=== PATIENT | female | born 1935 | race Caucasian/White ===

== ENCOUNTER → 2016-09-15 | Outpatient (CLI) | payer MEDICARE, OTHER ==
[~2016-09-15] MED LIST: ALPR-236 PO; ASCO500T9 PO; ASPI-917 PO; BISA10SU8 RECTALLY; BUPR-51 PO; CYAN500T2 PO; ESCI20TA22 PO; FERR324T4 PO; GABA-336 PO; HYDR-4246 PO; LISI10TA7 PO; MAGN400O4 PO; MEMA1CAP3 PO; QUET150T3 PO; SENN-152 PO; SOLI10TA5 PO; TRAZ-173 PO; VIT1CAPS47 PO
--- NOTE | 2016-09-15 14:16 | DI ---
EXAM: WRIST LEFT 3-4 VIEWS LOCATION OF DICTATION: [place] HISTORY: ITS.REASON: W19.XXXA FALL fell yesterday. Pain on thumb side of wrist. COMPARISON: Compared to March 16, 2016. FINDINGS: There are age-indeterminate fractures involving the distal left radius and ulnar styloid process. The fractures may reflect acute on chronic fractures at the fractures are slightly changed when compared to the old fractures in March 2016. There is no evidence for joint dislocation. There is mild osteoarthrosis of the radiocarpal joint and moderate osteoarthrosis at the first carpal metacarpal joint. Para-articular osteopenia is noted. Moderate soft tissue swelling about the wrist joint. Impression: 1. Fractures noted about the distal left radius and ulnar styloid process which are slightly changed when compared to the previous fracture dated March 2016 and may reflect acute on chronic fracture deformities. There is slight increase dorsally angulation of the distal radial fracture. There is soft tissue swelling about the wrist joint. 2. No evidence for joint dislocation or subluxation. 3. Moderate osteoarthrosis as described above. .
== END ==
LOC: IMA 13:23
PROVIDERS: ATTEND Family Medicine
DX: S52.592A Other fractures of lower end of left radius, initial encounter for closed fracture (principal); S52.615A Nondisplaced fracture of left ulna styloid process, initial encounter for closed fracture; W19.XXXA Unspecified fall, initial encounter; Y93.9 Activity, unspecified; Y92.009 Unspecified place in unspecified non-institutional (private) residence as the place of occurrence of the external cause; Y99.9 Unspecified external cause status; M19.032 Primary osteoarthritis, left wrist; M18.12 Unilateral primary osteoarthritis of first carpometacarpal joint, left hand; M79.89 Other specified soft tissue disorders; M25.532 Pain in left wrist

== ENCOUNTER 2016-09-26 10:12 | Emergency (ER) | payer MEDICARE, OTHER ==
[~2016-09-26] VITALS: Ht 162.6 cm; Wt 66.9 kg
[2016-09-26 10:15] VITALS: Ht 162.6 cm; Wt 66.9 kg
--- OUTSIDE RECORDS SUMMARY | 2016-09-26 10:17 | XMS REPORT | Referral Summary ---
Author Author [facility], Family Medicine Organization [facility] Address Unknown Phone Unavailable Care Team Providers Care Mobile Home Laborer Name Role Phone Yonathan Dalal Primary Care Physician [phone] Encounter VC Date(s): 04/17/16 - 04/17/16 [facility], [address] [place] [id number] Discharge Diagnosis: Back pain, chronic Discharge Diagnosis: Hypothyroidism (disorder) Discharge Diagnosis: Depression Discharge Diagnosis: H/O fracture of wrist Discharge Diagnosis: Burning tongue syndrome Discharge Diagnosis: Chronic kidney disease (CKD) stage G1/A1, glomerular filtration rate (GFR) equal to or greater than 90 mL/min/1.73 square meter and albuminuria creatinine ratio less than 30 mg/g Discharge Diagnosis: Dementia, vascular Discharge Disposition: 01-Home or Self Care Attending Physician: Vincent Dalal MD Admitting Physician: Vincent Dalal MD Vital Signs Most recent to 1 oldest [Reference Range]: Blood Pressure 150/80 mmHg [90-140/60-90 mmHg] *HI* (04/17/16 1:05 PM) Problem List Condition Effective Dates Status Health Status Informant Allergies(Confirmed) Active Anemia(Confirmed) Active Anxiety state Active (finding)(Confirmed) Cholelithiasis(Confi Active rmed) Back pain, Active chronic(Confirmed) Chronic kidney Active disease (CKD) stage G1/A1, glomerular filtration rate (GFR) equal to or greater than 90 mL/min/1.73 square meter and albuminuria creatinine ratio less than 30 mg/g(Confirmed) CKD (chronic kidney Active disease)(Confirmed) Dementia(Confirmed) Active Depression(Confirmed Active ) Burning tongue Active syndrome(Confirmed) Hypothyroidism Active (disorder)(Confirmed ) Insomnia Active (disorder)(Confirmed ) Iron deficiency Active anemia (disorder)(Confirmed ) Tongue Active lesion(Confirmed) Melanoma of Active eye(Confirmed) Migraine without Active aura (disorder)(Confirmed ) Mild cognitive Active impairment(Confirmed ) Osteoarthritis(Confi Active rmed) Osteoporosis Active (disorder)(Confirmed ) Dementia, Active vascular(Confirmed) Allergies, Adverse Reactions, Alerts Substance Reaction Severity Status codeine Active Medications ALPRAZolam 0.5 mg oral tablet See Instructions, as needed for anxiety, Change in dose. Take 1/2 tab po q am, 1 tab po q pm. N. Dillons, # 45 tabs, 0 Refill(s) Start Date: 04/17/16 Status: Ordered aspirin 81 mg oral tablet 81 mg 1 tabs, Oral, Daily, # 90 tabs, 0 Refill(s), other reason (Rx) Start Date: 11/01/15 Status: Ordered buPROPion 150 mg/24 hours (XL) oral tablet, extended release See Instructions, TAKE 3 TABLETS DAILY (EVERY24 HOURS), # 270 tabs, 1 Refill(s) , eRx: [facility], TAKE 3 TABLETS DAILY (EVERY24 HOURS) Start Date: 12/13/15 Status: Ordered docusate sodium 100 mg oral tablet 100 mg 1 tabs, Oral, BID, as needed for constipation, # 60 tabs, 0 Refill(s) Start Date: 01/17/15 Status: Ordered [facility]- Zeaxanthin/Lutein Eye [facility]- Zeaxanthin/Lutein Start Date: 12/08/14 Status: Ordered gabapentin 100 mg oral capsule See Instructions, TAKE 1 CAPSULE 3 TIMES A DAY, # 90 caps, 3 Refill(s), eRx: [facility], TAKE 1 CAPSULE 3 TIMES A DAY Start Date: 01/07/16 Status: Ordered Lexapro 20 mg oral tablet 1 tabs, Oral, Daily, # 90 tabs, 1 Refill(s), Pharmacy: [facility], 1 tabs Oral Daily Start Date: 04/04/14 Status: Ordered Namzaric 28 mg-10 mg oral capsule, extended release 1 caps, Oral, Daily, # 30 caps, 0 Refill(s), Pharmacy: [facility] Start Date: 10/30/15 Stop Date: 11/29/15 Status: Ordered oxybutynin 15 mg/24 hr oral tablet, extended release See Instructions, TAKE ONE TABLET BY MOUTH DAILY, # 30 unknown unit, eRx: [facility] #[id number], TAKE ONE TABLET BY MOUTH DAILY Start Date: 03/27/16 Status: Ordered SEROquel 100 mg oral tablet 100 mg 1 tabs, Oral, Daily, 0 Refill(s) Start Date: 11/01/15 Status: Ordered SWIZZLE; MOUTH RINSE SWIZZLE; MOUTH RINSE, PRN Mouth Sores, 0 Refill(s) Start Date: 11/27/14 Status: Ordered traZODone 100 mg oral tablet 100 mg 1 tabs, Oral, Bedtime (once a day), # 90 tabs, 0 Refill(s), Pharmacy: [facility] #[id number], 1 tabs Oral Bedtime (once a day) Start Date: 01/17/16 Status: Ordered Results No data available for this section Immunizations Vaccine Date Refusal Reason influenza virus vaccine, inactivated 02/02/15 influenza virus vaccine, live 03/08/13 influenza virus vaccine, live 03/29/07 pneumococcal 13-valent conjugate vaccine 02/02/15 pneumococcal 23-polyvalent vaccine 02/09/02 Procedures Procedure Date Related Diagnosis Body Site Colonoscopy1 01/12/15 Appendectomy Biopsy of lung2 Colonoscopy Femoral head replacement Knee replacement-left Knee replacement-rt Myringotomy Surgery-sinus Tonsillectomy 1Diverticulosis repeat in 10 years 2negative Social History Social History Type Response Smoking Status Former smoker Assessment and Plan Extracted from: Title: Ambulatory Patient Education Author: Vincent Dalal MD Date: Home Health Care Dementia Dementia is a general term for problems with brain function. A person with dementia has memory loss and a hard time with at least one other brain function such as thinking, speaking, or problem solving. Dementia can affect social functioning, how you do your job, your mood, or your personality. The changes may be hidden for a long time. The earliest forms of this disease are usually not detected by family or friends. Dementia can be: Irreversible. Potentially reversible. Partially reversible. Progressive. This means it can get worse over time. CAUSES Irreversible dementia causes may include: Degeneration of brain cells (Alzheimer disease or Lewy body dementia). Multiple small strokes (vascular dementia). Infection (chronic meningitis or Creutzfeldt-Jared disease). Frontotemporal dementia. This affects younger people, age 40 to 70, compared to those who have Alzheimer disease. Dementia associated with other disorders like Parkinson disease, Harwick disease, or HIV-associated dementia. Potentially or partially reversible dementia causes may include: Medicines. Metabolic causes such as excessive alcohol intake, vitamin B12 deficiency , or thyroid disease. Masses or pressure in the brain such as a tumor, blood clot, or hydrocephalus. SIGNS AND SYMPTOMS Symptoms are often hard to detect. Family members or coworkers may not notice them early in the disease process. Different people with dementia may have different symptoms. Symptoms can include: A hard time with memory, especially recent memory. Long-term memory may not be impaired. Asking the same question multiple times or forgetting something someone just said. A hard time speaking your thoughts or finding certain words. A hard time solving problems or performing familiar tasks (such as how to use a telephone). Sudden changes in mood. Changes in personality, especially increasing moodiness or mistrust. Depression. A hard time understanding complex ideas that were never a problem in the past. DIAGNOSIS There are no specific tests for dementia. Your health care provider may recommend a thorough evaluation. This is because some forms of dementia can be reversible. The evaluation will likely include a physical exam and getting a detailed history from you and a family member. The history often gives the best clues and suggestions for a diagnosis. Memory testing may be done. A detailed brain function evaluation called neuropsychologic testing may be helpful. Lab tests and brain imaging (such as a CT scan or MRI scan) are sometimes important. Sometimes observation and re-evaluation over time is very helpful. TREATMENT Treatment depends on the cause. If the problem is a vitamin deficiency, it may be helped or cured with supplements. For dementias such as Alzheimer disease, medicines are available to stabilize or slow the course of the disease. There are no cures for this type of dementia. Your health care provider can help direct you to groups, organizations, and other health care providers to help with decisions in the care of you or your loved one. HOME CARE INSTRUCTIONS The care of individuals with dementia is varied and dependent upon the progression of the dementia. The following suggestions are intended for the person living with, or caring for, the person with dementia. Create a safe environment. Remove the locks on bathroom doors to prevent the person from accidentally locking himself or herself in. Use childproof latches on kitchen cabinets and any place where cleaning supplies, chemicals, or alcohol are kept. Use childproof covers in unused electrical outlets. Install childproof devices to keep doors and windows secured. Remove stove knobs or install safety knobs and an automatic shut-off on the stove. Lower the temperature on water heaters. Label medicines and keep them locked up. Secure knives, lighters, matches, power tools, and guns, and keep these items out of reach. Keep the house free from clutter. Remove rugs or anything that might contribute to a fall. Remove objects that might break and hurt the person. Make sure lighting is good, both inside and outside. Install grab rails as needed. Use a monitoring device to alert you to falls or other needs for help. Reduce confusion. Keep familiar objects and people around. Use night lights or dim lights at night. Label items or areas. Use reminders, notes, or directions for daily activities or tasks. Keep a simple, consistent routine for waking, meals, bathing, dressing, and bedtime. Create a calm, quiet environment. Place large clocks and calendars prominently. Display emergency numbers and home address near all telephones. Use cues to establish different times of the day. An example is to open curtains to let the natural light in during the day. Use effective communication. Choose simple words and short sentences. Use a gentle, calm tone of voice. Be careful not to interrupt. If the person is struggling to find a word or communicate a thought, try to provide the word or thought. Ask one question at a time. Allow the person ample time to answer questions. Repeat the question again if the person does not respond. Reduce nighttime restlessness. Provide a comfortable bed. Have a consistent nighttime routine. Ensure a regular walking or physical activity schedule. Involve the person in daily activities as much as possible. Limit napping during the day. Limit caffeine. Attend social events that stimulate rather than overwhelm the senses. Encourage good nutrition and hydration. Reduce distractions during meal times and snacks. Avoid foods that are too hot or too cold. Monitor chewing and swallowing ability. Continue with routine vision, hearing, dental, and medical screenings. Give medicines only as directed by the health care provider. Monitor driving abilities. Do not allow the person to drive when safe driving is no longer possible. [place] with an identification program which could provide location assistance in the event of a missing person situation. SEEK MEDICAL CARE IF: New behavioral problems start such as moodiness, aggressiveness, or seeing things that are not there (hallucinations). Any new problem with brain function happens. This includes problems with balance, speech, or falling a lot. Problems with swallowing develop. Any symptoms of other illness happen. Small changes or worsening in any aspect of brain function can be a sign that the illness is getting worse. It can also be a sign of another medical illness such as infection. Seeing a health care provider right away is important. SEEK IMMEDIATE MEDICAL CARE IF: A fever develops. New or worsened confusion develops. New or worsened sleepiness develops. Staying awake becomes hard to do. This information is not intended to replace advice given to you by your health care provider. Make sure you discuss any questions you have with your health care provider. Document Released: 11/11/2001 Document Revised: 06/08/2015 Document Reviewed: [employer] Interactive Patient Education 2016 [employer] Dementia Dementia is a word that is used to describe problems with the brain and how it works. People with dementia have memory loss. They may also have problems with thinking, speaking, or solving problems. It can affect how they act around people, how they do their job, their mood, and their personality. These changes may not show up for a long time. Family or friends may not notice problems in the early part of this disease. HOME CARE The following tips are for the person living with, or caring for, the person with dementia. Make the home safe. Remove locks on bathroom doors. Use childproof locks on cabinets where alcohol, cleaning supplies, or chemicals are stored. Put outlet covers in electrical outlets. Put in childproof locks to keep doors and windows safe. Remove stove knobs, or put in safety knobs that shut off on their own. Lower the temperature on water heaters. Label medicines. Lock them in a safe place. Keep knives, lighters, matches, power tools, and guns out of reach or in a safe place. Remove objects that might break or can hurt the person. Make sure lighting is good inside and outside. Put in grab bars if needed. Use a device that detects falls or other needs for help. Lessen confusion. Keep familiar objects and people around. Use night lights or low lit (dim) lights at night. Label objects or areas. Use reminders, notes, or directions for daily activities or tasks. Keep a simple routine that is the same for waking, meals, bathing, dressing, and bedtime. Create a calm and quiet home. Put up clocks and calendars. Keep emergency numbers and the home address near all phones. Help show the different times of day. Open the curtains during the day to let light in. Speak clearly and directly. Choose simple words and short sentences. Use a gentle, calm voice. Do not interrupt. If the person has a hard time finding a word to use, give them the word or thought. Ask 1 question at a time. Give enough time for the person to answer. Repeat the question if the person does not answer. Do things that lessen restlessness. Provide a comfortable bed. Have the same bedtime routine every night. Have a regular walking and activity schedule. Lessen naps during the day. Do not let the person drink a lot of caffeine. Go to events that are not overwhelming. Eat well and drink fluids. Lessen distractions during meal times and snacks. Avoid foods that are too hot or too cold. Watch how the person chews and swallows. This is to make sure they do not choke. Other Keep all vision, hearing, dental, and medical visits with the doctor. Only give medicines as told by the doctor. Watch the person's driving ability. Do not let the person drive if he or she cannot drive safely. Use a program that helps find a person if they become missing. You may need to register with this program. GET HELP RIGHT AWAY IF: A fever of 102 F (38.9 C) develops. Confusion develops or gets worse. Sleepiness develops or gets worse. Staying awake is hard to do. New behavior problems start like mood swings, aggression, and seeing things that are not there. Problems with balance, speech, or falling develop. Problems swallowing develop. Any problems of another sickness develop. MAKE SURE YOU: Understand these instructions. Will watch his or her condition. Will get help right away if he or she is not doing well or gets worse. This information is not intended to replace advice given to you by your health care provider. Make sure you discuss any questions you have with your health care provider. Document Released: 04/30/2009 Document Revised: 08/09/2012 Document Reviewed: [employer] Interactive Patient Education 2016 [employer] Preventive Medicine Back Exercises Back exercises help treat and prevent back injuries. The goal of back exercises is to increase the strength of your abdominal and back muscles and the flexibility of your back. These exercises should be started when you no longer have back pain. Back exercises include: Pelvic Tilt. Lie on your back with your knees bent. Tilt your pelvis until the lower part of your back is against the floor. Hold this position 5 to 10 sec and repeat 5 to 10 times. Knee to Chest. Pull first 1 knee up against your chest and hold for 20 to 30 seconds, repeat this with the other knee, and then both knees. This may be done with the other leg straight or bent, whichever feels better. Sit-Ups or Curl-Ups. Bend your knees 90 degrees. Start with tilting your pelvis, and do a partial, slow sit-up, lifting your trunk only 30 to 45 degrees off the floor. Take at least 2 to 3 seconds for each sit-up. Do not do sit-ups with your knees out straight. If partial sit-ups are difficult, simply do the above but with only tightening your abdominal muscles and holding it as directed. Hip-Lift. Lie on your back with your knees flexed 90 degrees. Push down with your feet and shoulders as you raise your hips a couple inches off the floor; hold for 10 seconds, repeat 5 to 10 times. Back arches. Lie on your stomach, propping yourself up on bent elbows. Slowly press on your hands, causing an arch in your low back. Repeat 3 to 5 times. Any initial stiffness and discomfort should lessen with repetition over time. Shoulder-Lifts. Lie face down with arms beside your body. Keep hips and torso pressed to floor as you slowly lift your head and shoulders off the floor. Do not overdo your exercises, especially in the beginning. Exercises may cause you some mild back discomfort which lasts for a few minutes; however, if the pain is more severe, or lasts for more than 15 minutes, do not continue exercises until you see your caregiver. Improvement with exercise therapy for back problems is slow. See your caregivers for assistance with developing a proper back exercise program. This information is not intended to replace advice given to you by your health care provider. Make sure you discuss any questions you have with your health care provider. Document Released: 06/25/2005 Document Revised: 08/09/2012 Document Reviewed: [employer] Interactive Patient Education 2016 [employer] No follow up information was provided. Extracted from: Title: Office Visit Note Author: Vincent Dalal MD Date: 04/17/16 Assessment/Plan Back pain, chronic This issue was reviewed, appears stable, and current therapy continued except as mentioned. Appropriate lab was reviewed from the most recent appropriate entry and lab was ordered if needed in the cpoe/nursing orders, and follow up recommended generally in 90 days and no later then six months. Has gabapentin. IMPRESSION: 1. Unremarkable CT appearance of the neck. Please note that the oral cavity cannot be evaluated due to extensive artifact related to the patient's dental hardware. 2. Benign calcified granulomas within the lungs. No noncalcified pulmonary nodules or pulmonary masses evident. 3. No pathologic adenopathy evident within the neck, chest, abdomen or pelvis. 4. No neoplastic process evident within the abdomen or pelvis. 5. Gallbladder distention with intra- and extrahepatic biliary ductal dilatation. No radiodense stone or pancreatic head mass evident. Consider sonographic evaluation. 6. No acute or suspicious osseous abnormalities. Remote right-sided rib fractures are noted. [1] Burning tongue syndrome This issue was reviewed, appears stable, and current therapy continued except as mentioned. Appropriate lab was reviewed from the most recent appropriate entry and lab was ordered if needed in the cpoe/nursing orders, and follow up recommended generally in 90 days and no later then six months. Chronic kidney disease (CKD) stage G1/A1, glomerular filtration rate (GFR) equal to or greater than 90 mL/min/1.73 square meter and albuminuria creatinine ratio less than 30 mg/g This issue was reviewed, appears stable, and current therapy continued except as mentioned. Appropriate lab was reviewed from the most recent appropriate entry and lab was ordered if needed in the cpoe/nursing orders, and follow up recommended generally in 90 days and no later then six months. Limit nsaids. Dementia, vascular This issue was reviewed, appears stable, and current therapy continued except as mentioned. Appropriate lab was reviewed from the most recent appropriate entry and lab was ordered if needed in the cpoe/nursing orders, and follow up recommended generally in 90 days and no later then six months. IMPRESSION: 1. Moderate to severe periventricular white matter disease progressing since the comparison exam in 2008. Likely etiology is chronic microvascular ischemic change. Moderate cerebral parenchymal volume loss is present similar to comparison. 2. No acute ischemic changes or other acute finding is identified. [2] Depression This issue was reviewed, appears stable, and current therapy continued except as mentioned. Appropriate lab was reviewed from the most recent appropriate entry and lab was ordered if needed in the cpoe/nursing orders, and follow up recommended generally in 90 days and no later then six months. Mood stable. Daughter Bhumi here and willing to turn xanax down to .5mg 1/ 2 tab qam and one tab pm. The patient has family members present who are agreeable with today's plan and have no additional concerns or requests. Also seeing Dr. Hanley at soon with Dr. Bass leaving. H/O fracture of wrist Ongoing but seeingDr. Lai. Refuses to take calcium. Hypothyroidism (disorder) This issue was reviewed, appears stable, and current therapy continued except as mentioned. Appropriate lab was reviewed from the most recent appropriate entry and lab was ordered if needed in the cpoe /nursing orders, and follow up recommended generally in 90 days and no later then six months. Lab stable. The patient was given the vaccines requested per protocol and according to those needed for school/family/college/etc. Flu vaccine per request.
--- OUTSIDE RECORDS SUMMARY | 2016-09-26 10:17 | XMS REPORT | Continuity of Care Document ---
Author Author [facility] Organization [facility] Address Unknown Phone Unavailable Allergies Active Description Code Type Severity Reaction Onset Reported/Identified Relationship to Patient Clinical Status Yes CODEINE Drug Allergy N/A N/A Medications Medication Packaging Start Date Stop Date Route Dosage Sig [id number] 10/02/2014 ORAL daily [id number] 03/12/2015 ORAL daily Problems Procedures Results Encounters ACCT No. Visit Date/Time Discharge Status Pt. Type Provider Facility Loc./Unit Complaint [id number] 03/29/2013 10:51:00 03/29/2013 23 :59:59 CLS Outpatient
--- OUTSIDE RECORDS SUMMARY | 2016-09-26 10:18 | XMS REPORT | Referral Summary ---
Author Author [facility] Organization [facility] Address Unknown Phone Unavailable Care Team Providers Care Band Master Name Role Phone Yonathan Dalal Primary Care Physician [phone] Encounter VC Date(s): 05/12/16 - 05/12/16 [facility] [address] [place] [address] JAMIE Yao [phone] Discharge Diagnosis: Overactive bladder Discharge Disposition: 01-Home or Self Care Attending Physician: Waqar Sagastume MD Admitting Physician: Waqar Sagastume MD Vital Signs Most recent to 1 oldest [Reference Range]: Peripheral Pulse 74 bpm Rate [60-100 bpm] (05/12/16 2:04 PM) Blood Pressure 158/92 mmHg [90-140/60-90 mmHg] *HI* (05/12/16 2:04 PM) Problem List Condition Effective Dates Status [...] q am, 1 tab po q pm. Travis Reece, # 45 tabs, 0 Refill(s) Start Date: 04/17/16 Status: Ordered aspirin 81 mg oral tablet 81 mg 1 tabs, Oral, Daily, # 90 tabs, 0 Refill(s), other reason (Rx) Start Date: 11/01/15 Status: Ordered buPROPion 150 mg/24 hours (XL) oral tablet, extended release See Instructions, TAKE 3 TABLETS DAILY (EVERY24 HOURS), # 270 tabs, 1 Refill(s) , eRx: [facility], TAKE 3 TABLETS DAILY (EVERY24 HOURS) [...] DAY, # 90 caps, 3 Refill(s), eRx: [facility], TAKE 1 CAPSULE 3 TIMES A DAY Start Date: 05/05/16 Status: Ordered Lexapro 20 mg oral tablet 1 tabs, Oral, Daily, # 90 tabs, 1 Refill(s), Pharmacy: [facility], 1 tabs Oral Daily Start Date: 04/04/14 Status: Ordered Namzaric 28 mg-10 mg oral capsule, extended release 1 caps, Oral, Daily, # 30 caps, 0 Refill(s), Pharmacy: [facility] Start Date: 10/30/15 Stop Date: 11/29/15 Status: Ordered SEROquel 100 mg oral tablet 100 mg 1 tabs, Oral, Daily, 0 Refill(s) Start Date: 11/01/15 Status: Ordered solifenacin 10 mg oral tablet 10 mg 1 tabs, Oral, Daily, # 90 tabs, 3 Refill(s), Pharmacy: [facility], 1 tabs Oral Daily,x90 days Start Date: 05/12/16 Stop Date: 05/07/17 Status: Ordered SWIZZLE; MOUTH RINSE SWIZZLE; MOUTH RINSE, PRN Mouth Sores, 0 Refill(s) Start Date: 11/27/14 Status: Ordered traZODone 100 mg oral tablet 100 mg 1 tabs, Oral, Bedtime (once a day), # 90 tabs, 0 Refill(s), Pharmacy: [facility] #[id number], 1 tabs Oral Bedtime (once a day) Start Date: 01/17/16 Status: Ordered Results No data available for this section Immunizations Given and Recorded Vaccine Date Status Refusal Reason influenza virus vaccine, inactivated1 04/17/16 Given influenza virus vaccine, inactivated 02/02/15 Recorded influenza virus vaccine, live 03/08/13 Given influenza virus vaccine, live 03/29/07 Given pneumococcal 13-valent conjugate vaccine 02/02/15 Recorded pneumococcal 23-polyvalent vaccine 02/09/02 Recorded 1Early/Late Reason: Other : given on time, documented late Procedures Procedure Date Related Diagnosis Body Site Colonoscopy1 01/12/15 Appendectomy Biopsy of lung2 Colonoscopy Femoral head replacement Knee replacement-left Knee replacement-rt Myringotomy Surgery-sinus Tonsillectomy 1Diverticulosis repeat in 10 years 2negative Social History Social History Type Response Smoking Status Former smoker Assessment and Plan Extracted from: Title: Office Visit Note Author: Waqar Sagastume MD Date: 05/12/16 Assessment/Plan Overactive bladder I discussed about alternative medicationsfor overactive bladder.I discussed all the options for overactive bladder including PTNS and InterStim therapy. The patient interested in trying other medications. We will stop oxybutynin and start her on [id number] mg. Her daughter says that patient drinksa lot of diet Cokes.I didtell herto decreasethe consumption of diet Cokeas that can worsen her urinary symptoms.
[2016-09-26] MEDS ORDERED: CALC-191 PO (11:32)
[2016-09-26] MEDS ORDERED: ACET-62 PO (11:32)
[2016-09-26] MEDS ORDERED: ASCO500T10 PO (11:32)
[2016-09-26] MEDS ORDERED: FERR-70 PO (11:35)
[2016-09-26] MEDS ORDERED: CYAN100099 PO (11:35)
[2016-09-26] MEDS ORDERED: SENN-152 PO (11:35)
[2016-09-26] MEDS ORDERED: FOLI0.4T2 PO (11:39)
[2016-09-26] MEDS ORDERED: LISI30TA4 PO (11:39)
[2016-09-26] MEDS ORDERED: HYDR12.54 PO (11:39)
[2016-09-26] MEDS ORDERED: SERT50TA PO (11:41)
[2016-09-26] MEDS ORDERED: TRAZ-170 PO (11:44)
[2016-09-26] MEDS ORDERED: GUAI400T65 PO (11:44)
[2016-09-26] MEDS ORDERED: HYDR-4246 PO (11:45)
--- OUTSIDE RECORDS SUMMARY | 2016-09-26 12:14 | XMS REPORT | Continuity of Care Document ---
Author Author [facility] Organization [facility] Address Unknown Phone Unavailable Allergies Active Description Code Type Severity Reaction Onset Reported/Identified Relationship to Patient Clinical Status Yes CODEINE Drug Allergy N/A N/A Medications Medication Packaging Start Date Stop Date Route Dosage Sig [id number] 10/02/2014 ORAL daily [id number] 03/12/2015 ORAL daily Problems Procedures Results Encounters ACCT No. Visit Date/Time Discharge Status Pt. Type Provider Facility Loc./Unit Complaint [id number] 03/29/2013 10:51:00 03/29/2013 23 :59:59 [facility] Outpatient
--- NOTE | 2016-09-26 12:20 | ERPDOC ---
Departure Disposition Decision Date: Sep 26, 2016 Disposition Decision Time: 16:27 Disposition: [facility] TO [facility] Impression Impression Impression: Primary Impression: Suicidal ideation Additional Impression: Depression Depression Type: unspecified Qualified Codes: F32.9 - Major depressive disorder, single episode, unspecified Severity: Moderate Condition: Stable Seen By: Mid-level only Referrals: CRYSTAL LONGORIA MD (Family) Problems/Meds/Labs Reviewed?: Yes Medications reviewed and manag: Yes Follow up care ordered?: Yes Mental Status: Alert, Oriented HPI - Psychosocial General Chief Complaint: Suicide Ideation/Attempt Stated Complaint: SUICIDAL IDEATION Time Seen by MD: 12:05 Source: patient, family (daughter) HPI - Psychosocial Initial Comments 81-year-old female brought to ED from alf at [facility] by her daughter for suicidal ideation. Today staff asked patient if there is anything they could do for her and she said yes "bring me a gun " stating she wanted to kill herself. She also was caught rifling through a silverware drawer looking for a knife at the facility according to daughter. When I asked patient is there anything that triggered her wanting to take her own life. She states yes and then goes into detail about placement at assisted living. Daughter states the patient went to [facility] yesterday to pick out of room in assisted living. Patient says she thought she was going to get an apartment, not a room and is very disappointed and depressed. Daughter says that all they had available were studios at this time and patient would have to be wait listed for a larger room. Patient had been in her own home prior to going to alf due to shoulder fracture and surgery. Patient does have a history of long-term depression according to daughter and sees a therapist at [facility]. Daughter states that patient is to be medically cleared today and is accepted at [facility]. Patient denies any change in her health or pain, daughter also denies any change except for recent suicidal ideation. Associated Symptoms: suicidal ideation Allergies: Coded Allergies: codeine (Verified Allergy, Unknown, ITCHING, 07/10/16) morphine (Verified Allergy, Unknown, 07/10/16) Past History Patient Surgical History Rt shoulder hemiarthroplasty 07/11/16 - Dr. Lai Colonoscopy 01/12/15 B/L Knee replacement Rt femoral head replacement appendectomy Lung biopsy Myringotomy Tonsillectomy Past Medical History Metabolic: hypertension, hypothyroidism Cardiac: DENIES: angina Respiratory: DENIES: COPD, asthma GI: DENIES: ulcers Female: DENIES: renal failure Neurological: CVA, TIA Musculoskeletal: osteoarthritis Psychological: anxiety, dementia, depression Surgical History General: appendix, tonsils Joint: knee, shoulder Family History Family PMH: FOUND: other (noncontributory) Vaccines Hx Influenza Vaccination: Yes (FALL 2015) Hx Pneumococcal Vaccination: Yes (HAS HAD AFTER AGE 64) Hx Tetanus, Diptheria, Pertuss: No (UNKNOWN) Social History Does patient use chewing tobac: No Second Hand Exposure: No Substance Use Type: does not use Alcohol Intake: none Marital Status: Housing: house, shelter (skilled) Current Occupational Status: retired Review of Systems Constitutional Constitutional: DENIES: chills, dizziness, fever, weakness Eyes General: DENIES: erythema, exudate Lids/Accessories: DENIES: erythema, swelling ENMT Ears: DENIES: pain Hearing: hearing loss Sinuses: DENIES: congestion, rhinorrhea Mouth/Throat: DENIES: sore throat Cardiovascular Cardiac: DENIES: chest pain, murmur Rhythm/Rate: DENIES: palpitations Pulmonary Respiratory: DENIES: cough, dyspnea GI Upper Abdomen: DENIES: nausea, pain, vomiting Lower Abdomen: DENIES: diarrhea, pain General: DENIES: dysuria, pain Musculoskeletal General: DENIES: joint pain, pain, tenderness Integumentary Skin: DENIES: color change, itching, rash Neurological General: DENIES: ataxia, change in strength, numbness, paralysis/paresis, weakness Psychiatric Psychiatric: anxiety, depression, see HPI Physical Exam General General Nourishment: well nourished, well developed, no acute distress, adult General Body Habitus: well groomed Vitals and Pain First Documented Vital Signs Date Time Temp Pulse Resp B/P Pulse Ox O2 Delivery O2 Flow Rate FiO2 09/26/16 10:15 97.7 91 20 167/85 100 Room Air Weight: Kilograms: Height (feet): 5 Height (inches): 6.00 Triage Pain Scale: Eyes (brief) Eyes Brief: found: EOMI, PERRL ENMT (brief) ENMT Brief: FOUND: TM clear, TM good light reflex, mucosa moist, NOT FOUND: nasal exudate, nasal swelling, pharnyx erythema Neck (brief) Neck: FOUND: trachea midline, NOT FOUND: adenopathy, spasm, tenderness, thyromegaly Respiratory (brief) Respiratory: FOUND: clear all moralez, equal bilaterally, symmetrical Cardiovascular (brief) Cardiac: FOUND: regular rate, regular rhythm Abdomen (brief) Abdominal Brief: FOUND: bowel normo active x4, soft, NOT FOUND: distended, tender Musculoskeletal (brief) Musculoskeletal Brief: NOT FOUND: deformity, tenderness Integumentary (brief) Integumentary Brief: FOUND: dry, pink, warm Neurologic (brief) Neurological Brief: FOUND: CN w/o gross def to obs Neurologic Cranial Nerves: NOT FOUND: facial asymmetry Motor : Motor Side: bilateral Motor Location: foot extension, foot flexion, traffic investigator strength Motor Degree: 5 Sensation: FOUND: soft touch intact x4 ext Psychiatric (brief) Psychiatric Brief: FOUND: alert, oriented, NOT FOUND: normal affect (flat) Differential Diagnoses Considering: Delirium, Dementia, Depression, Acute Psychosis, Suicidal Gesture , Suicidal Ideation Progress Results/Orders Orders Procedure Category Date Status Time Nothing By Mouth (Ed EDM 09/26/16 Transmitted Only) 12:34 Cbc W/Auto LAB 09/26/16 Complete Diff-Reflex Manual 12:34 Cmp - Comprehensive LAB 09/26/16 Complete Metabolic 12:34 Ua, Dip Wreflex LAB 09/26/16 Complete Microsc & Transit Manager 12:34 Tsh - Thyroid Stim LAB 09/26/16 Complete Hormone 12:34 Hydrocodone/Acetaminophen PHA 09/26/16 Complete ([place] 5/325) 13:00 Lab Results Laboratory Tests Test 09/26/16 12:54 09/26/16 13:55 White Blood Count 4.5T/MM3 Red Blood Count 4.04M/MM3 Hemoglobin 12.1GM/DL Hematocrit 36.8% Mean Corpuscular Volume 91.1UM3 Mean Corpuscular Hemoglobin 30.0UUG Mean Corpuscular Hemoglobin Concent 32.9GM/DL RDW Standard Deviation 41.4FL Platelet Count 195T/MM3 Mean Platelet Volume 9.3UM3 Immature Granulocyte % (Auto) 0.2% Neutrophils (%) (Auto) 67.6% Lymphocytes (%) (Auto) 19.2% Monocytes (%) (Auto) 10.5% Eosinophils (%) (Auto) 1.6% Basophils (%) (Auto) 0.9% Absolute Immature Granulocyte (auto 0.01T/MM3 Absolute Neutrophils (auto) 3.0T/MM3 Absolute Lymphocytes (auto) 0.9T/MM3 Absolute Monocytes (auto) 0.5T/MM3 Absolute Eosinophils (auto) 0.1T/MM3 Absolute Basophils (auto) 0.0T/MM3 Turbidity < 20 Sodium Level 137MEQ/L Potassium Level 4.3MEQ/L Chloride Level 99MEQ/L Carbon Dioxide Level 28MEQ/L Anion Gap 10MEQ/L Blood Urea Nitrogen 20.0MG/DL Creatinine 1.2MG/DL Glomerular Filtration Rate Calc 43 BUN/Creatinine Ratio 17RATIO Glucose Level 108MG/DL Calculated Osmolality 268MOSM/KG Calcium Level 10.1MG/DL Total Bilirubin 0.50MG/DL Icterus Index < 2 Aspartate Amino Transf (AST/SGOT) 17U/L Alanine Aminotransferase (ALT/SGPT) 23U/L Alkaline Phosphatase 94U/L Total Protein 6.1G/DL Albumin 3.8G/DL Globulin 2.3G/DL Albumin/Globulin Ratio 1.7RATIO Thyroid Stimulating Hormone (TSH) 1.04MIU/L Chemistry Specimen Hemolysis < 15 Urine Collection Type Voided-not cc-midstr Urine Color Yellow Urine Turbidity Clear Urine pH 7.0 Urine Specific [place] <=1.005 Urine Protein Negative Urine Glucose (UA) Negative Urine Ketones Negative Urine Blood Negative Urine Nitrite Negative Urine Bilirubin Negative Urine Urobilinogen 0.2EU/DL Urine Leukocyte Esterase Negative Urinalysis Comment Microscopic not ind. Medications Current ED Medications Acetaminophen/ Hydrocodone Bitart ([place] 5/325) 1 tab O ONCE PO Last administered on 09/26/16 13:01; Start 09/26/16 at 13:00; Stop 09/26/16 at 13:01 ; Status DC Progress Progress CBC, CMP and UA unremarkable TSH WNL Patient sleeping. I discussed labs and conversation I had with Dr. Mora with patient and her daughter and answered questions. Consult/PCP Consult/PCP : Physician Contacted: Dr. Mora Type of discussion: Admit Discussion/PCP Discussion Details I discussed patient's HPI, past medical history, labs, vital signs, exam findings with Dr. Mora at [facility]. Dr. heard says he will accept patient at [facility] providing she does have Medicare days labs and they do have a handicapped rooms available. Dr. Mora called back and let our nurse know that they do have handicapped room available and patient does have medicare days left. AURELIANO MOREL SOUP MIXER Sep 26, 2016 12:20
--- NOTE | 2016-09-26 12:50 | NUR ---
LAB LAB AT BEDSIDE FOR BLOOD DRAW
[2016-09-26] MEDS ORDERED: HYDROCODONE/APAP 5 mg/325 mg TABLET PO ONE (13:00)
[2016-09-26 13:03] LABS: BASOPHILS % (AUTO) 0.9 % (0-2); EOSINOPHILS # (AUTO) 0.1 T/MM3 (0-0.5); EOSINOPHILS % (AUTO) 1.6 % (0-4); HCT - HEMATOCRIT 36.8 % (36-46); HGB - HEMOGLOBIN 12.1 GM/DL (12-16); IMMATURE GRANULOCYTE # (AUTO) 0.01 T/MM3 (0.00-0.03); IMMATURE GRANULOCYTE % (AUTO) 0.2 % (0.0-0.5); LYMPHOCYTES # (AUTO) 0.9 T/MM3 (1-4.8); LYMPHOCYTES % (AUTO) 19.2 % (23-45); MEAN CORPUSCULAR HGB CONC(MCHC 32.9 GM/DL (31-37); MEAN CORPUSCULAR VOLUME 91.1 UM3 (80-100); MEAN PLATELET VOLUME 9.3 UM3 (9.4-12.4); MONOCYTES # (AUTO) 0.5 T/MM3 (0-0.8); MONOCYTES % (AUTO) 10.5 % (0-9.0); NEUTROPHILS % (AUTO) 67.6 % (33-66); RED BLOOD COUNT 4.04 M/MM3 (4.00-5.20); WBC - WHITE BLOOD COUNT 4.5 T/MM3 (4.5-11.0)
[2016-09-26 13:09] LABS: ALBUMIN 3.8 G/DL (3.5-5.0); ALBUMIN/GLOBULIN RATIO 1.7 RATIO (1.1-2.2); ALKALINE PHOSPHATASE 94 U/L (38-126); ALT (SGPT) 23 U/L (9-52); ANION GAP 10 MEQ/L (5-15); AST (SGOT) 17 U/L (14-36); BUN/CREATININE RATIO 17 RATIO (6-26); CALCIUM 10.1 MG/DL (8.4-10.2); CHLORIDE 99 MEQ/L (98-107); CO2 - CARBON DIOXIDE 28 MEQ/L (22-30); CREATININE 1.2 MG/DL (0.7-1.2); GLOMERULAR FILTRATION RATE 43; GLUCOSE 108 MG/DL (65-110); POTASSIUM 4.3 MEQ/L (3.6-5); SODIUM 137 MEQ/L (134-144); TOTAL PROTEIN 6.1 G/DL (6.3-8.2)
--- NOTE | 2016-09-26 13:32 | NUR ---
ACTIVITY PATIENT TRANSFERS TO BEDSIDE COMMODE TO PROVIDE UA. PATIENT PERFORMS GAGAN HYGEINE PRIOR TO VOIDING IN [facility].
[2016-09-26 14:01] LABS: BLOOD, URINE NEGATIVE (NEGATIVE); COLOR,URINE YELLOW (YELLOW); LEUKOCYTE ESTERASE ,URINE NEGATIVE (NEGATIVE); NITRITE,URINE NEGATIVE (NEGATIVE); UROBILINOGEN,URINE 0.2 EU/DL (NORMAL)
[2016-09-26 15:18] LABS: THYROID STIM HORMONE-TSH 1.04 MIU/L (0.47-4.68)
--- NOTE | 2016-09-26 16:25 | NUR ---
REPORT REPORT GIVEN TO ERVIN MELLO AT [facility]
--- NOTE | 2016-09-26 16:26 | NUR ---
EMS EMS CALLED FOR TRANSFER
[2016-09-26 16:42] VITALS: BP 129/68; PULSE 83; RESP 20; TEMP 97.7; O2SAT 95
== END 2016-09-26 16:42 ==
LOC: ED 10:12
DX: R45.851 Suicidal ideations (principal); F32.9 Major depressive disorder, single episode, unspecified
CPT/HCPCS: 36415; 51701; 80053; 81003; 84443; 85025; 99285; A9270

== ENCOUNTER → 2016-10-14 | Outpatient (CLI) | payer MEDICARE, OTHER ==
[~2016-10-14] MED LIST changes: +ACET-62 PO; +ASCO500T10 PO; -ASCO500T9 PO; -ASPI-917 PO; -BISA10SU8 RECTALLY; +CALC-191 PO; +CYAN100099 PO; -CYAN500T2 PO; -ESCI20TA22 PO; +FERR-70 PO; -FERR324T4 PO; +FOLI0.4T2 PO; +GUAI400T65 PO; +HYDR12.54 PO; -LISI10TA7 PO; +LISI30TA4 PO; -MAGN400O4 PO; +SERT50TA PO; +TRAZ-170 PO; -TRAZ-173 PO
[2016-10-14 07:00] LABS: BASOPHILS # (AUTO) 0.1 T/MM3 (0-0.2); BASOPHILS % (AUTO) 1.3 % (0-2); EOSINOPHILS # (AUTO) 0.2 T/MM3 (0-0.5); HCT - HEMATOCRIT 36.6 % (36-46); HGB - HEMOGLOBIN 11.7 GM/DL (12-16); IMMATURE GRANULOCYTE # (AUTO) 0.01 T/MM3 (0.00-0.03); IMMATURE GRANULOCYTE % (AUTO) 0.3 % (0.0-0.5); LYMPHOCYTES % (AUTO) 24.3 % (23-45); MEAN CORPUSCULAR HGB 29.5 UUG (26-34); MEAN CORPUSCULAR VOLUME 92.4 UM3 (80-100); MEAN PLATELET VOLUME 9.7 UM3 (9.4-12.4); MONOCYTES # (AUTO) 0.4 T/MM3 (0-0.8); MONOCYTES % (AUTO) 9.8 % (0-9.0); NEUTROPHILS #(AUTO)-ABSOLUTE 2.4 T/MM3 (1.8-7.7); NEUTROPHILS % (AUTO) 60.3 % (33-66); RED BLOOD COUNT 3.96 M/MM3 (4.00-5.20)
[2016-10-14 07:12] LABS: ANION GAP 9 MEQ/L (5-15); BUN/CREATININE RATIO 16 RATIO (6-26); CALCIUM 9.2 MG/DL (8.4-10.2); CHLORIDE 106 MEQ/L (98-107); CO2 - CARBON DIOXIDE 26 MEQ/L (22-30); CREATININE 1.1 MG/DL (0.7-1.2); GLOMERULAR FILTRATION RATE 48; GLUCOSE 87 MG/DL (65-110); POTASSIUM 4.1 MEQ/L (3.6-5); SODIUM 141 MEQ/L (134-144)
== END ==
LOC: LABNH.PM 00:44
PROVIDERS: ATTEND Family Medicine
DX: I10 Essential (primary) hypertension (principal)
CPT/HCPCS: 36415; 80048; 85025; P9604

== ENCOUNTER 2016-11-17 10:38 | Inpatient (IN) ==
[2016-11-17] MEDS ORDERED: ACETAMINOPHEN 500 MG TABLET PO ONE (10:51)
[2016-11-17] MEDS ORDERED: CEFTRIAXONE (ER USE ONLY) 1 GM in NS 100 ML IV ONE (10:51)
[2016-11-17] MEDS ORDERED: NS 1,000 ML IV ONE (10:51)
--- NOTE | 2016-11-17 10:58 | Emergency Department Report ---
Fever HPI - General Chief Complaint: Fever Stated Complaint: fall Time Seen by Provider: 11/17/16 10:51 Source: EMS, RN notes reviewed Mode of arrival: EMS Limitations: altered mental status - History of Present Illness HPI Narrative: 81yo woman presented to the ER today for fever. Pt fell last night at her assisted; pt had no c/o and no head/neck tenderness at that time. This AM, pt was found to be tachy with a fever to 102'F. [facility] GLUER at the [facility] ordered pt to the ER for further evaluation. Pt has h/o UTI and dementia. Pt has no complaints at this time, though notes that the ED is 'hot'. She complained to EMS that she felt weak. MD complaint: fever Onset (ago): hour(s) (3) Maximum Temperature: 102 F Temperature Source: oral Associated symptoms: denies other symptoms Relieving factors: nothing Exacerbating factors: nothing Treatments prior to arrival fever: none - Related Data Home Medications Medication Instructions Recorded Confirmed ALPRAZolam [Alprazolam] 0.5 mg PO HS #0 06/04/10 11/21/16 BuPROPion XL [Wellbutrin Xl] 150 mg PO TID #0 11/22/14 11/21/16 Gabapentin 100 mg PO TID #0 10/24/15 11/21/16 Ascorbic Acid 500 mg PO DAILY #0 09/26/16 11/21/16 Cyanocobalamin (Vitamin B-12) 1,000 mcg PO DAILY #0 09/26/16 11/21/16 [B-12] Ferrous Sulfate 325 mg PO WB #0 09/26/16 11/21/16 Sennosides/Docusate Sodium [Sm 1 tab PO BID #0 09/26/16 11/21/16 Senna-S Tablet] guaiFENesin [Guaifenesin] 400 mg PO Q4H PRN #0 09/26/16 11/21/16 ALPRAZolam [Xanax] 0.25 mg PO DAILY PRN 11/17/16 11/21/16 Amoxicillin [Amoxicillin] 2,000 mg PO PRN PRN 11/17/16 11/21/16 Aspirin [Aspirin EC] 81 mg PO DAILY 11/17/16 11/21/16 Aspirin/Acetaminophen/Caffeine 1 tab PO Q4H PRN 11/17/16 11/21/16 [Excedrin Extra Strength Caplet] Beta-Carotene(A)-Vits C,E/Mins 1 tab PO DAILY 11/17/16 11/21/16 [Vision Vitamins] Calcium Carbonate/Vitamin D3 1 tab PO DAILY 11/17/16 11/21/16 [Calcium 600-Vit D3 400 Tablet] Folic Acid [Folate] 1 mg PO BID 11/17/16 11/21/16 Lisinopril [Prinivil] 40 mg PO HS 11/17/16 11/21/16 Memantine HCl/Donepezil HCl 1 cap PO DAILY 11/17/16 11/21/16 [Namzaric 28 mg-10 mg Capsule] Quetiapine [Seroquel] 100 mg PO HS 11/17/16 11/21/16 Sertraline [Zoloft] 100 mg PO DAILY 11/17/16 11/21/16 Previous Rx's Medication Instructions Recorded Acetaminophen [Tylenol] 650 mg PO Q5H PRN 11/21/16 Albuterol Neb (0.5%) [Proventil 2.5 mg IH Q2H PRN ampul 11/21/16 Neb (0.5%)] Allergies Allergy/AdvReac Type Severity Reaction Status Date / Time codeine Allergy Unknown ITCHING Verified 07/10/16 05:29 morphine Allergy Unknown Verified 07/10/16 05:29 Review of Systems Limitations: ROS unobtainable due to patient's medical condition PFSH Patient Stated Medical History Dementia Yes Hypertension Yes Anxiety Depression Osteoporosis Anemia Chronic pain HTN Dementia Insomnia Constipation Physical Exam - Limitations Limitations: altered mental status (Dementia) - General General appearance: alert, in no apparent distress - Normal Exams: Head:: Normocephalic without trauma Eyes:: Pupils are PERRLA w/ EOMI, No scleral icterus, irritation, or foreign bodies noted ENMT:: No facial trauma, nasal exudates, pharyngeal erythema, or exudates are noted Neck:: Full range of motion, without adenopathy, JVD, bruits or thyromegaly Lymphatic:: No lymphadenopathy, or lymphedema noted Musculoskeletal:: No tenderness, or deformity noted, good range of motion, all extremities Integumentary:: No rashes, hives, hair and nails, without abnormality Neurological:: Patient is alert, cranial nerves, motor/sensory/cerebellar, exams w/o gross deficits, to observation Psychiatric:: Patient exhibits, appropriate attention - Chest Chest inspection: Present: normal inspection, symmetric chest wall rise. Absent : tenderness - Respiratory Respiratory exam: Present: normal lung sounds bilaterally. Absent: respiratory distress, wheezes, accessory muscle use, prolonged expiratory phase - Cardiovascular Cardiovascular exam: Present: regular rate, normal rhythm, normal heart sounds, +S1, +S2. Absent: systolic murmur, diastolic murmur, +S3, +S4 - Abdominal Exam Abdominal exam: Present: soft, normal bowel sounds. Absent: distention, tenderness, guarding, rebound, psoas sign, obturator sign, Radford's sign, Rovsing's sign, hernia Course Course Narrative: Suspicion for sepsis based on pts presentation. Pt has normal WBC, but with bandemia. UA obtained after atbx started (due to playing by fishfishme rules of 1hr to atbx). - Consultations Consultation #1: Hospitalist: Time: 12:38 Vital Signs Temperature 99.7 F 11/17/16 10:45 Pulse Rate 97 11/17/16 10:45 Respiratory Rate 20 11/17/16 10:45 Blood Pressure 143/69 H 11/17/16 10:45 Pulse Oximetry 96 11/17/16 10:45 Temperature 98.1 F 11/21/16 15:00 Pulse Rate 86 11/21/16 15:00 Respiratory Rate 18 11/21/16 15:00 Blood Pressure 146/90 H 11/21/16 15:00 Pulse Oximetry 96 11/21/16 15:00 Fever - Differential Diagnosis Likely: cellulitis, gastroenteritis, community acquired pneumonia, pyelonephritis, viral infection, sepsis - Medical Records Attestation: I reviewed the patient's medical records. - Lab Data Attestation: I reviewed the patient's lab results. Result diagrams: 11/19/16 04:45 11/19/16 04:45 Lab Results 11/17/16 11/17/16 11/17/16 Range/Units 11:00 11:00 11:00 WBC 9.2 (4.5-11.0) T/MM3 RBC 4.01 (4.00-5.20) M/MM3 Hgb 12.1 (12-16) GM/DL Hct 36.7 (36-46) % MCV 91.5 (80-100) UM3 MCH 30.2 (26-34) UUG MCHC 33.0 (31-37) GM/DL RDW Std Deviation 43.1 (36.9-50.2) FL Plt Count 156 (130-400) T/MM3 MPV 10.0 (9.4-12.4) UM3 Immature Gran % (Auto) Not performed Neut % (Auto) Not performed Lymph % (Auto) Not performed Morton % (Auto) Not performed Eos % (Auto) Not performed Baso % (Auto) Not performed Neut # Not performed Lymph # Not performed Morton # Not performed Baso # Not performed Abs Immat Gran (auto) Not performed Neutrophils % (Manual) 75.0 H (33-66) % Band Neutrophils % 15.0 H (0-6) % Lymphocytes % (Manual) 9.0 L (23-45) % Monocytes % (Manual) 1.0 (0-9.0) % Neutrophils # (Manual) 6.9 (1.8-7.7) T/MM3 Band Neutrophils # 1.4 T/MM3 Lymphocytes # (Manual) 0.8 L (1-4.8) T/MM3 Monocytes # (Manual) 0.1 (0-0.8) T/MM3 RBC Morph Comment Normal Turbidity < 20 (0-20) Sodium 138 (134-144) MEQ/L Potassium 4.0 (3.6-5) MEQ/L Chloride 104 (98-107) MEQ/L Carbon Dioxide 22 (22-30) MEQ/L Anion Gap 12 (5-15) MEQ/L BUN 17.0 (7-17) MG/DL Creatinine 1.1 (0.7-1.2) MG/DL GFR Calculation 48 BUN/Creatinine Ratio 16 (6-26) RATIO Glucose 96 (65-110) MG/DL Glucometer (65-110) mg/dL Calculated Osmolality 268 (261-280) MOSM/KG Calcium 9.6 (8.4-10.2) MG/DL Total Bilirubin 1.00 (0.20-1.30) MG/DL Icterus Index < 2 (0-7) AST 32 (14-36) U/L ALT 34 (9-52) U/L Alkaline Phosphatase 115 (38-126) U/L Total Protein 6.2 L (6.3-8.2) G/DL Albumin 3.9 (3.5-5.0) G/DL Globulin 2.3 L (2.4-3.6) G/DL Albumin/Globulin Ratio 1.7 (1.1-2.2) RATIO Plasma Lactate 0.7 (0.6-2.2) MMOL/L Vitamin B12 > 1000 H (239-931) PG/ML TSH (0.47-4.68) MIU/L Specimen Hemolysis < 15 (0-25) Ur Collection Type Urine Color (YELLOW) Urine Clarity Urine pH (5.0-8.0) Ur Specific [place] (1.015-1.025) Urine Protein (NEGATIVE) Urine Glucose (UA) (NEGATIVE) Urine Ketones (NEGATIVE) Urine Occult Blood (NEGATIVE) Urine Nitrate (NEGATIVE) Urine Bilirubin (NEGATIVE) Urine Urobilinogen (NORMAL) EU/DL Ur Leukocyte Esterase (NEGATIVE) Urinalysis Comment 11/17/16 11/17/16 11/17/16 Range/Units 11:00 11:03 12:16 WBC (4.5-11.0) T/MM3 RBC (4.00-5.20) M/MM3 Hgb (12-16) GM/DL Hct (36-46) % MCV (80-100) UM3 MCH (26-34) UUG MCHC (31-37) GM/DL RDW Std Deviation (36.9-50.2) FL Plt Count (130-400) T/MM3 MPV (9.4-12.4) UM3 Immature Gran % (Auto) Neut % (Auto) Lymph % (Auto) Morton % (Auto) Eos % (Auto) Baso % (Auto) Neut # Lymph # Morton # Baso # Abs Immat Gran (auto) Neutrophils % (Manual) (33-66) % Band Neutrophils % (0-6) % Lymphocytes % (Manual) (23-45) % Monocytes % (Manual) (0-9.0) % Neutrophils # (Manual) (1.8-7.7) T/MM3 Band Neutrophils # T/MM3 Lymphocytes # (Manual) (1-4.8) T/MM3 Monocytes # (Manual) (0-0.8) T/MM3 RBC Morph Comment Turbidity (0-20) Sodium (134-144) MEQ/L Potassium (3.6-5) MEQ/L Chloride (98-107) MEQ/L Carbon Dioxide (22-30) MEQ/L Anion Gap (5-15) MEQ/L BUN (7-17) MG/DL Creatinine (0.7-1.2) MG/DL GFR Calculation BUN/Creatinine Ratio (6-26) RATIO Glucose (65-110) MG/DL Glucometer 98 (65-110) mg/dL Calculated Osmolality (261-280) MOSM/KG Calcium (8.4-10.2) MG/DL Total Bilirubin (0.20-1.30) MG/DL Icterus Index (0-7) AST (14-36) U/L ALT (9-52) U/L Alkaline Phosphatase (38-126) U/L Total Protein (6.3-8.2) G/DL Albumin (3.5-5.0) G/DL Globulin (2.4-3.6) G/DL Albumin/Globulin Ratio (1.1-2.2) RATIO Plasma Lactate (0.6-2.2) MMOL/L Vitamin B12 (239-931) PG/ML TSH 0.92 (0.47-4.68) MIU/L Specimen Hemolysis (0-25) Ur Collection Type Urine, clean catch Urine Color Yellow (YELLOW) Urine Clarity Clear Urine pH 7.0 (5.0-8.0) Ur Specific [place] 1.015 (1.015-1.025) Urine Protein Trace A (NEGATIVE) Urine Glucose (UA) Negative (NEGATIVE) Urine Ketones Negative (NEGATIVE) Urine Occult Blood Negative (NEGATIVE) Urine Nitrate Negative (NEGATIVE) Urine Bilirubin Negative (NEGATIVE) Urine Urobilinogen 0.2 (NORMAL) EU/DL Ur Leukocyte Esterase Negative (NEGATIVE) Urinalysis Comment Microscopic not ind. - Radiology Data Attestation: I reviewed the patient's radiology results. CXR: Stable chest. Small b/l pulm effusions. No acute CT pathology. Disposition Clinical Impression: Viral infection Disposition: To [facility] Acute Care Condition: Stable Time of Disposition: 11:00 - Seen By: physician
--- NOTE | 2016-11-17 12:28 | XRay Report ---
EXAM: XR chest 2V HISTORY: Fever LOCATION OF DICTATION: [facility] COMPARISON: Prior examination dated 07/11/2016 FINDINGS: The cardiomediastinal silhouette is normal. The mediastinum is not widened. The trachea is midline. The pulmonary vascularity is not engorged. There is been interval development of an acute infiltrate at the left lung base. The remaining lung moralez are clear. The costophrenic angles are sharp. The bony thorax is stable. IMPRESSION: 1. Acute infiltrate at the left lung base. Post therapeutic follow-up is recommended. .
--- NOTE | 2016-11-17 13:39 | History & Physical Report ---
<Kaylee Conti - Last Filed: 11/17/16 13:34> History of Present Illness Date: 11/17/16 Chief complaint: fever HPI: Rachel Cole is an 81 y/o woman with a hx of dementia and resident of [facility], who developed fever of 102, tachycardia 109 and tachypnea of 30 early in the morning of 11/17/16. Ns records also indicate increased confusion, nausea, and complaints of a headache. EMS was contacted and she was taken to [facility], where evaluation showed LLL pneumonia. She met sepsis criteria with fever, tachycardia , tachypnea, and bandemia (15%). WBC was normal; chemistries were unremarkable. She was maintaining sats on room air. Unfortunately with her dementia, she was unable to verify these symptoms or contribute further to ROS or PMH. Per Rachel , she has felt fine and has been in good health without any fever, cough, headache, sinus problems, abdominal pain, nausea, vomiting, diarrhea, constipation, or urinary changes. Dr. Lobo was notified, and the pt was admitted to inpt status for IV abx, resp monitoring/treatment. LOS is expected to exceed 2 overnights. Review of Systems ROS unobtainable: due to mental status PFSH (1) Iron deficiency anemia (2) Chronic back pain (3) Cholelithiases (4) CKD stage G1/A1, GFR > 90 and albumin creatinine ratio <30 mg/g (5) Dementia, vascular (6) Hypothyroidism (7) Melanoma (8) Insomnia (9) Osteoarthritis (10) Osteoporosis (11) OAB (overactive bladder) (12) Depression (13) Anxiety (14) Closed 4-part fracture of proximal end of humerus (07/10/16) (15) Allergic rhinitis Surgical History: Rt shoulder hemiarthroplasty 07/11/16 - Dr. Lai. Colonoscopy 01/12/15. B/L Knee replacement. Rt femoral head replacement. appendectomy. Lung biopsy. Myringotomy. Tonsillectomy Family History: Mother had Alzheimer's dementia Father of a stroke. No family history of heart problems, A-fib, or clotting problems. - Social History Smoking status: Never smoker (though smoked a little in high school) Substance use type: does not use Alcohol intake frequency: does not drink Current residence: [facility] Medications Home Medications Medication Instructions Recorded Confirmed Type ALPRAZolam [Alprazolam] 0.5 mg PO HS #0 06/04/10 11/17/16 History BuPROPion XL [Wellbutrin Xl] 150 mg PO TID #0 11/22/14 11/17/16 History Gabapentin 100 mg PO TID #0 10/24/15 11/17/16 History Ascorbic Acid 500 mg PO DAILY #0 09/26/16 11/17/16 History Cyanocobalamin (Vitamin B-12) 1,000 mcg PO DAILY #0 09/26/16 11/17/16 History [B-12] Ferrous Sulfate 325 mg PO WB #0 09/26/16 11/17/16 History Sennosides/Docusate Sodium [Sm 1 tab PO BID #0 09/26/16 11/17/16 History Senna-S Tablet] guaiFENesin [Guaifenesin] 400 mg PO Q4H PRN #0 09/26/16 11/17/16 History ALPRAZolam [Xanax] 0.25 mg PO DAILY PRN 11/17/16 11/17/16 History Amoxicillin [Amoxicillin] 2,000 mg PO PRN PRN 11/17/16 11/17/16 History Aspirin [Aspirin EC] 81 mg PO DAILY 11/17/16 11/17/16 History Aspirin/Acetaminophen/Caffeine 1 tab PO Q4H PRN 11/17/16 11/17/16 History [Excedrin Extra Strength Caplet] Beta-Carotene(A)-Vits C,E/Mins 1 tab PO DAILY 11/17/16 11/17/16 History [Vision Vitamins] Calcium Carbonate/Vitamin D3 1 tab PO DAILY 11/17/16 11/17/16 History [Calcium 600-Vit D3 400 Tablet] Folic Acid [Folate] 1 mg PO BID 11/17/16 11/17/16 History Lisinopril [Prinivil] 40 mg PO HS 11/17/16 11/17/16 History Memantine HCl/Donepezil HCl 1 cap PO DAILY 11/17/16 11/17/16 History [Namzaric 28 mg-10 mg Capsule] Quetiapine [Seroquel] 100 mg PO HS 11/17/16 11/17/16 History Sertraline [Zoloft] 100 mg PO DAILY 11/17/16 11/17/16 History Allergies Allergy/AdvReac Type Severity Reaction Status Date / Time codeine Allergy Unknown ITCHING Verified 07/10/16 05:29 morphine Allergy Unknown Verified 07/10/16 05:29 Exam Vital Signs: Temp Pulse Resp BP Pulse Ox 99.7 F 92 20 143/69 H 96 11/17/16 10:45 11/17/16 11:05 11/17/16 10:45 11/17/16 10:45 11/17/16 10:45 Height: 1.65 m Weight: 65.8 kg - Constitutional Present: no acute distress, well nourished, well developed, thin - Routine HEENT Exam Eye: Present: PERRL. Absent: conjunctival icterus ENT: Present: mucous membranes moist Comments: green purulent drainage in both eyes, Rt > Lt - Routine Neck Exam Present: supple - Routine Respiratory Exam Present: CTA bilaterally, diminished air movement (LLL) - Routine Cardiovascular Exam Present: RRR, S1, S2, no murmur - Routine Abdominal Exam Present: soft, normoactive bowel sounds, non distended, non tender - Routine Extremities Exam Present: no edema, pulses intact, normal capillary refill - Routine Skin Exam Present: intact, dry, warm - Routine Neurological Exam Present: alert, altered mental status. Absent: oriented X3 - Routine Psychiatric Exam Present: normal affect Results - Labs CBC & Chem 7: 11/17/16 11:00 11/17/16 11:00 - Imaging and Cardiology Chest x-ray Status: image reviewed by me Additional comments: LLL infiltrate Assessment and Plan (1) Sepsis due to pneumonia Current visit: Yes Status: Acute (2) Conjunctivitis Current visit: Yes Status: Acute (3) Vascular dementia Current visit: Yes Status: Chronic (4) Acute encephalopathy Current visit: Yes Status: Acute DVT Prophylaxis: SCD's Resuscitation Status: Full Code Assessment and Plan: Admit, inpatient status for sepsis secondary to PNA. 1. PSI/PORT score is 102, indicating Risk class IV (8.2-9.3% mortality rate). 2. Rocephin + Zithromax daily; trend results of cultures (blood, sputum) 3. Culture eye drainage and start Polytrim for conjunctivitis 4. Recheck labs in am 5. Consult ST to assess swallow ability; may also need to consult PT/OT 6. Advanced care directives - need to clarify code status with DPOA listed in LTC papers 7. Home meds not reconciled at time of admission Discussed with Dr. Lobo. Hospital Course Summary Disclaimer: The visit summary below is not to be considered part of the above Progress Note. Hospital Course: 11/17/16 Admit, inpatient status for sepsis secondary to PNA. 1. PSI/PORT score is 102, indicating Risk class IV (8.2-9.3% mortality rate). 2. Rocephin + Zithromax daily; trend results of cultures (blood, sputum) 3. Culture eye drainage and start Polytrim for conjunctivitis 4. Recheck labs in am 5. Consult ST to assess swallow ability; may also need to consult PT/OT 6. Advanced care directives - need to clarify code status with DPOA listed in LTC papers 7. Home meds not reconciled at time of admission <Burak Lobo - Last Filed: 11/17/16 16:10> History of Present Illness Date: 11/17/16 Exam Vital Signs: Temp Pulse Resp BP Pulse Ox 96.5 F L 78 15 145/69 H 95 11/17/16 14:38 11/17/16 14:38 11/17/16 15:09 11/17/16 14:38 11/17/16 15:09 Height: 1.65 m Weight: 65.8 kg Results - Labs CBC & Chem 7: 11/17/16 11:00 11/17/16 11:00 Assessment and Plan (1) Sepsis due to pneumonia Current visit: Yes Status: Acute (2) Pneumonia Current visit: Yes Status: Acute (3) Conjunctivitis Current visit: Yes Status: Acute (4) Vascular dementia Current visit: Yes Status: Chronic (5) Acute encephalopathy Current visit: Yes Status: Acute (6) HTN (hypertension) Current visit: Yes Status: Chronic (7) Hypothyroidism Current visit: Yes Status: Chronic (8) Osteoarthritis Current visit: Yes Status: Chronic (9) Age related osteoporosis Current visit: Yes Status: Chronic (10) OAB (overactive bladder) Current visit: Yes Status: Chronic (11) Depression Current visit: Yes Status: Chronic (12) Anxiety Current visit: Yes Status: Chronic Assessment and Plan: Have independently interviewed and examined pt. Chart reviewed. Case discussed with ED physician and my BETTING AGENCY COUNTER CLERK. Care plan developed with my supervision; agree with above. Not been feeling well-more tired, weak. Hard for her to describe her symptoms. Breathing feeling okay-denies pain with breathing, cough or congestion. Not having chest pressure or pain. Denies nausea or ab pain. Feels appetite has been stable. Found to have temp elevation in her care facility and more confused than her typical baseline dementia status. Evaluated in ED. CXR showing infiltrate. Bandemia notes. HR with elevation. In light of her dementia (difficult for her to give good clinical picture) and meeting sepsis criteria, Dr Lobo notified and pt placed in inpatient admission for treatment. Anticipate greater than 2 midnights of care needed. Lungs: decreased, no distress. Upper airway noises present. CV: regular AB: soft flat nt/nd +BS; no rebound or guarding. EXT: thin MSE: awake alert; not agitated or restless Xray: left lower infiltrate present Assessment: as above Plan: Inpatient admission. IV Rocephin and azithromycin for antimicrobial coverage. IVF of NS at 75 cc/hr for hydration. Monitor respiratory status closely. Neb treatments. Speech to check swallow function. Check B12 level as last level in Jul 2016 low normal and pt currently on oral B12. Check TSH due to hypothyroidism. SCD for DVT prevention. Monitor lab. Sepsis Assessment - Focused Exam Vital Signs Temp Pulse Resp BP Pulse Ox 11/17/16 15:09 15 95 11/17/16 14:38 96.5 F L 78 24 145/69 H 96 11/17/16 13:58 96.5 F L 78 15 145/69 H 95 11/17/16 13:45 83 33 H 11/17/16 13:30 82 34 H Hospital Course Summary Disclaimer: The visit summary below is not to be considered part of the above Progress Note.
[2016-11-17] MEDS ORDERED: ALBUTEROL 2.5mg/0.5ml (0.5%) NEB IH PRN (13:53)
[2016-11-17] MEDS ORDERED: GUAIFENESIN 400MG TABLET PO PRN (14:24)
[2016-11-17] MEDS ORDERED: ONDANSETRON 4 MG/2 ML INJECTION IVP PRN (14:24)
[2016-11-17] MEDS ORDERED: ALPRAZolam 0.25 MG TABLET PO PRN (14:24)
[2016-11-17] MEDS: AZITHROMYCIN IV 500 MG in NS 250ml 250 ML IV SCH (14:57)
[2016-11-17] MEDS: NS 1,000 ML IV SCH (14:58)
[2016-11-17] MEDS: POLYMYXIN EACH EYE SCH ×2 (16:50→20:57)
[2016-11-17] MEDS: [UNRECOGNIZED DRUG - OTHER] EACH EYE SCH ×2 (16:50→20:57)
[2016-11-17] MEDS: BuPROPion XL 150mg (24HR) TABLET PO SCH ×2 (16:50→21:01)
[2016-11-17] MEDS: GABAPENTIN 100 MG CAPSULE PO SCH ×2 (16:51→21:01)
[2016-11-17] MEDS ORDERED: BISACODYL 10 MG SUPPOSITORY RECTALLY PRN (18:35)
[2016-11-17] MEDS ORDERED: POLYETHYL GLYCOL 3350 17gm PACKET PO PRN (18:35)
[2016-11-17] MEDS ORDERED: ACETAMINOPHEN 325 MG TABLET PO PRN (18:35)
[2016-11-17] MEDS: MEMANTINE 10 MG TABLET PO SCH (21:00)
[2016-11-17] MEDS: FOLIC ACID 1 MG TABLET PO SCH (21:00)
[2016-11-17] MEDS: QUETIAPINE 100 MG TABLET PO SCH (21:01)
[2016-11-17] MEDS: ALPRAZolam 0.5 MG TABLET PO SCH (21:01)
[2016-11-17] MEDS: SENNA + DOCUSATE TABLET PO SCH (21:01)
[2016-11-17] MEDS: DONEPEZIL 10 MG TABLET PO SCH (21:01)
[2016-11-18] MEDS ORDERED: Pharmacy Consult for Fall Risk MC PRN (00:54)
[2016-11-18] MEDS: NS 1,000 ML IV SCH (05:35)
[2016-11-18] MEDS: [UNRECOGNIZED DRUG - OTHER] EACH EYE SCH ×4 (05:37→21:27)
[2016-11-18] MEDS: POLYMYXIN EACH EYE SCH ×4 (05:37→21:27)
[2016-11-18] MEDS ORDERED: NON-FORMULARY MEDICATION 1 EACH EACH (Memantine Hcl/Donepezil Hcl [Namzaric 28 Mg-10 Mg Ca PO SCH (09:00)
[2016-11-18] MEDS: FERROUS SULFATE 324 MG TABLET PO SCH (11:38)
[2016-11-18] MEDS: CALCIUM 600 + VIT D 400 TABLET PO SCH (11:38)
[2016-11-18] MEDS: FOLIC ACID 1 MG TABLET PO SCH ×2 (11:39→20:21)
[2016-11-18] MEDS: MEMANTINE 10 MG TABLET PO SCH ×2 (11:39→20:21)
[2016-11-18] MEDS: GABAPENTIN 100 MG CAPSULE PO SCH ×3 (11:39→20:21)
[2016-11-18] MEDS: SERTRALINE 100 MG TABLET PO SCH (11:40)
[2016-11-18] MEDS: SENNA + DOCUSATE TABLET PO SCH ×2 (11:40→20:21)
[2016-11-18] MEDS: BuPROPion XL 150mg (24HR) TABLET PO SCH ×3 (11:41→20:20)
[2016-11-18] MEDS: CYANOCOBALAMIN (B-12) 500mcg TABLET PO SCH (11:41)
[2016-11-18] MEDS: MULTI-VITAMIN PLAIN TABLET PO SCH (11:41)
[2016-11-18] MEDS: ASCORBIC ACID 500 MG TABLET PO SCH (11:44)
[2016-11-18] MEDS: ASPIRIN *EC* 81 MG TABLET PO SCH (11:44)
[2016-11-18] MEDS: CEFTRIAXONE 1 G in NS 100 ML IV SCH (12:27)
--- NOTE | 2016-11-18 12:50 | Progress Note ---
<SushilaKaylee D - Last Filed: 11/18/16 12:47> Subjective: Rachel was seen after her nurse was assisting her back to bed. She forgot to call for help, and safety is this nurse's primary concern. Rachel denies any n/ v today and her nurse reports eating a good breakfast. She denies trouble breathing or cough. She remembered that she was diagnosed with pneumonia. She was mostly worried that she lost her cat, but her nurse reassured her that others found the cat and are caring for it - this relieved her concerns. Objective Vital signs: Temp Pulse Resp BP Pulse Ox 99.1 F 104 H 18 149/83 H 96 11/18/16 08:00 11/18/16 08:00 11/18/16 08:00 11/18/16 08:00 11/18/16 08:00 Weight: 69 kg - Constitutional Present: no acute distress, well nourished, well developed, thin - Routine HEENT Exam Eye: Present: conjunctivae pink. Absent: conjunctival icterus, scleral injection ENT: Present: mucous membranes moist Comments: no eye drainage noted today - Routine Respiratory Exam Present: CTA bilaterally (slightly diminished lower left) - Routine Cardiovascular Exam Present: S1, S2, JVD (mild) - Routine Abdominal Exam Present: soft, normoactive bowel sounds, non distended, non tender - Routine Extremities Exam Present: no edema, pulses intact, normal capillary refill - Routine Skin Exam Present: intact, dry, warm - Routine Neurological Exam Present: alert - Routine Psychiatric Exam Present: normal affect. Absent: good insight (forgets to call for help) Results - Labs CBC & Chem 7: 11/18/16 05:03 11/18/16 05:03 Assessment and Plan (1) Sepsis due to pneumonia Current visit: Yes Status: Acute (2) Conjunctivitis Current visit: Yes Status: Acute (3) Vascular dementia Current visit: Yes Status: Chronic (4) Acute encephalopathy Current visit: Yes Status: Acute (5) Pneumonia Current visit: Yes Status: Acute (6) HTN (hypertension) Current visit: Yes Status: Chronic (7) Hypothyroidism Current visit: Yes Status: Chronic (8) Osteoarthritis Current visit: Yes Status: Chronic (9) Age related osteoporosis Current visit: Yes Status: Chronic (10) OAB (overactive bladder) Current visit: Yes Status: Chronic (11) Depression Current visit: Yes Status: Chronic (12) Anxiety Current visit: Yes Status: Chronic Assessment and Plan: Pneumonia -resp status is stable -cont azithro and rocephin, day #2 -sputum cx prelim - gram neg rods and gram pos cocci in pairs -BC - no growth after 1 day -SIRS improving - afebrile but occasionally tachycardic; no bands on this am's labs -mild JVD - will stop IVF and monitor oral intake -increase activity - will consult PT/OT d/t weakness conjunctivitis -cx shows few gram pos cocci -improved today - cont polytrim gtts Labs reviewed -TSH normal -vit B12 pending Risk for aspiration -speech evaluated - oral phase dysphagia, reduced mastication -recommending modified diet with chopped meats and thin liquids Sepsis Assessment - Evaluation Sepsis screening result: No Definite Risk Hospital Course Summary Disclaimer: The visit summary below is not to be considered part of the above Progress Note. Hospital Course: 11/17/16 Admit, inpatient status for sepsis secondary to PNA. 1. PSI/PORT score is 102, indicating Risk class IV (8.2-9.3% mortality rate). 2. Rocephin + Zithromax daily; trend results of cultures (blood, sputum) 3. Culture eye drainage and start Polytrim for conjunctivitis 4. Recheck labs in am 5. Consult ST to assess swallow ability; may also need to consult PT/OT 6. Advanced care directives - need to clarify code status with DPOA listed in LTC papers 7. Home meds not reconciled at time of admission 11/18/16 Pneumonia -resp status is stable -cont azithro and rocephin, day #2 -sputum cx prelim - gram neg rods and gram pos cocci in pairs -BC - no growth after 1 day -SIRS improving - afebrile but occasionally tachycardic; no bands on this am's labs -mild JVD - will stop IVF and monitor oral intake -increase activity - will consult PT/OT d/t weakness conjunctivitis -cx shows few gram pos cocci -improved today - cont polytrim gtts Labs reviewed -TSH normal -vit B12 pending Risk for aspiration -speech evaluated - oral phase dysphagia, reduced mastication -recommending modified diet with chopped meats and thin liquids <Burak Lobo D - Last Filed: 11/18/16 13:41> Objective Vital signs: Temp Pulse Resp BP Pulse Ox 99.1 F 104 H 18 149/83 H 96 11/18/16 08:00 11/18/16 08:00 11/18/16 08:00 11/18/16 08:00 11/18/16 08:00 Results - Labs CBC & Chem 7: 11/18/16 05:03 11/18/16 05:03 Assessment and Plan (1) Sepsis due to pneumonia Current visit: Yes Status: Acute (2) Pneumonia Current visit: Yes Status: Acute (3) Conjunctivitis Current visit: Yes Status: Acute (4) Vascular dementia Current visit: Yes Status: Chronic (5) Acute encephalopathy Current visit: Yes Status: Acute (6) HTN (hypertension) Current visit: Yes Status: Chronic (7) Hypothyroidism Current visit: Yes Status: Chronic (8) Osteoarthritis Current visit: Yes Status: Chronic (9) Age related osteoporosis Current visit: Yes Status: Chronic (10) OAB (overactive bladder) Current visit: Yes Status: Chronic (11) Depression Current visit: Yes Status: Chronic (12) Anxiety Current visit: Yes Status: Chronic DVT Prophylaxis: SCD's Assessment and Plan: Have independently interviewed and examined pt. Chart reviewed. Cased discussed with my ETHANOL OPERATIONS MANAGER. Care plan developed with my supervision; agree with above. Feels rough this afternoon-tired and weak. She reports her breathing is feeling okay-not having SOA, cough, congestion, or pain with breathing. No RAMEY or sinus congestion. Denies muscle aches or pain. No nausea or ab discomfort. Not having chest heaviness, pressure or pain. Lungs: decreased, upper airway noises. No distress on RA. CV: regular AB: soft nt/nd +BS MSE: awake alert, not agitated or restless. Plan: Continue with antimicrobial coverage for lung pathogens. D/C IVF. Encourage oral intake. Encourage activities to help with strengthening. Recheck lab in am. Continue with supportive care. Hospital Course Summary Disclaimer: The visit summary below is not to be considered part of the above Progress Note.
[2016-11-18] MEDS: AZITHROMYCIN IV 500 MG in NS 250ml 250 ML IV SCH (13:46)
[2016-11-18] MEDS: DONEPEZIL 10 MG TABLET PO SCH (21:27)
[2016-11-18] MEDS: ALPRAZolam 0.5 MG TABLET PO SCH (21:27)
[2016-11-18] MEDS: QUETIAPINE 100 MG TABLET PO SCH (21:27)
[2016-11-19] MEDS: [UNRECOGNIZED DRUG - OTHER] EACH EYE SCH ×4 (03:51→20:59)
[2016-11-19] MEDS: POLYMYXIN EACH EYE SCH ×4 (03:51→20:59)
[2016-11-19] MEDS: CEFTRIAXONE 1 G in NS 100 ML IV SCH (08:26)
[2016-11-19] MEDS: FOLIC ACID 1 MG TABLET PO SCH ×2 (08:27→20:58)
[2016-11-19] MEDS: SERTRALINE 100 MG TABLET PO SCH (08:27)
[2016-11-19] MEDS: SALINE FLUSH 10ml SYRINGE IVF PRN (08:27)
[2016-11-19] MEDS: MEMANTINE 10 MG TABLET PO SCH ×2 (08:27→20:58)
[2016-11-19] MEDS: BuPROPion XL 150mg (24HR) TABLET PO SCH ×3 (08:27→20:58)
[2016-11-19] MEDS: CALCIUM 600 + VIT D 400 TABLET PO SCH (08:27)
[2016-11-19] MEDS: MULTI-VITAMIN PLAIN TABLET PO SCH (08:27)
[2016-11-19] MEDS: CYANOCOBALAMIN (B-12) 500mcg TABLET PO SCH (08:27)
[2016-11-19] MEDS: GABAPENTIN 100 MG CAPSULE PO SCH ×3 (08:28→20:58)
[2016-11-19] MEDS: FERROUS SULFATE 324 MG TABLET PO SCH (08:28)
[2016-11-19] MEDS: ASPIRIN *EC* 81 MG TABLET PO SCH (08:33)
[2016-11-19] MEDS: ASCORBIC ACID 500 MG TABLET PO SCH (08:33)
[2016-11-19] MEDS: SENNA + DOCUSATE TABLET PO SCH ×2 (09:58→20:58)
[2016-11-19] MEDS: AZITHROMYCIN IV 500 MG in NS 250ml 250 ML IV SCH (14:18)
--- NOTE | 2016-11-19 14:25 | Progress Note ---
Subjective: Pt states she is feeling fine but is very cold. Does not appear to have any shivering or fever. States is feeling well, appears to be very comfortable. Objective Vital signs: Temp Pulse Resp BP Pulse Ox 99.4 F 98 18 184/80 H 95 11/19/16 00:34 11/19/16 08:00 11/19/16 08:00 11/19/16 08:00 11/19/16 08:00 Weight: 66.4 kg - Constitutional Present: no acute distress, well nourished, well developed, thin - Routine HEENT Exam Head: Present: normocephalic, atraumatic Eye: Present: EOMI, PERRL - Routine Cardiovascular Exam Present: RRR - Routine Abdominal Exam Present: soft, non distended, non tender - Routine Extremities Exam Absent: cyanosis, clubbing, edema - Routine Neurological Exam Present: alert - Routine Lymphatic Exam Lymphatic: Absent: adenopathy - Routine Psychiatric Exam Present: normal affect Results - Labs CBC & Chem 7: 11/19/16 04:45 11/19/16 04:45 Assessment and Plan (1) Sepsis due to pneumonia Current visit: Yes Status: Acute (2) Conjunctivitis Current visit: Yes Status: Acute (3) Vascular dementia Current visit: Yes Status: Chronic (4) Acute encephalopathy Current visit: Yes Status: Acute (5) Pneumonia Current visit: Yes Status: Acute (6) HTN (hypertension) Current visit: Yes Status: Chronic (7) Hypothyroidism Current visit: Yes Status: Chronic (8) Osteoarthritis Current visit: Yes Status: Chronic (9) Age related osteoporosis Current visit: Yes Status: Chronic (10) OAB (overactive bladder) Current visit: Yes Status: Chronic (11) Depression Current visit: Yes Status: Chronic (12) Anxiety Current visit: Yes Status: Chronic Assessment and Plan: Rachel is a 81 YO WF that came with ? of PNA. She appears to be doing better today and is on no respiratory distress. CXR on admisison showed "............................ IMPRESSION: 1. Acute infiltrate at the left lung base. Post therapeutic follow-up is recommended. ..........................................." 1) PNA - - Continue with Rocephin and Zithromax - Pt is stable. - May change to oral agents tomorrow since yesterday was a "Rough day" cabinet worker is working with family to place pt on SNF or similar. Sepsis Assessment - Evaluation Sepsis screening result: No Definite Risk Hospital Course Summary Disclaimer: The visit summary below is not to be considered part of the above Progress Note. Hospital Course: 11/17/16 Admit, inpatient status for sepsis secondary to PNA. 1. PSI/PORT score is 102, indicating Risk class IV (8.2-9.3% mortality rate). 2. Rocephin + Zithromax daily; trend results of cultures (blood, sputum) 3. Culture eye drainage and start Polytrim for conjunctivitis 4. Recheck labs in am 5. Consult ST to assess swallow ability; may also need to consult PT/OT 6. Advanced care directives - need to clarify code status with DPOA listed in LTC papers 7. Home meds not reconciled at time of admission 11/18/16 Pneumonia -resp status is stable -cont azithro and rocephin, day #2 -sputum cx prelim - gram neg rods and gram pos cocci in pairs -BC - no growth after 1 day -SIRS improving - afebrile but occasionally tachycardic; no bands on this am's labs -mild JVD - will stop IVF and monitor oral intake -increase activity - will consult PT/OT d/t weakness conjunctivitis -cx shows few gram pos cocci -improved today - cont polytrim gtts Labs reviewed -TSH normal -vit B12 pending Risk for aspiration -speech evaluated - oral phase dysphagia, reduced mastication -recommending modified diet with chopped meats and thin liquids
[2016-11-19] MEDS: DONEPEZIL 10 MG TABLET PO SCH (21:00)
[2016-11-19] MEDS: QUETIAPINE 100 MG TABLET PO SCH (21:00)
[2016-11-19] MEDS: ALPRAZolam 0.5 MG TABLET PO SCH (21:00)
[2016-11-20] MEDS ORDERED: Pharmacy Consult for Fall Risk XX PRN (02:26)
[2016-11-20] MEDS: [UNRECOGNIZED DRUG - OTHER] EACH EYE SCH ×4 (04:15→21:31)
[2016-11-20] MEDS: POLYMYXIN EACH EYE SCH ×4 (04:15→21:31)
[2016-11-20] MEDS: FERROUS SULFATE 324 MG TABLET PO SCH (07:50)
[2016-11-20] MEDS: ACETAMINOPHEN PO PRN (07:50)
[2016-11-20] MEDS: CAFFEINE PO PRN (07:50)
[2016-11-20] MEDS: ASPIRIN PO PRN (07:50)
[2016-11-20] MEDS: CEFTRIAXONE 1 G in NS 100 ML IV SCH (07:51)
[2016-11-20] MEDS: SALINE FLUSH 10ml SYRINGE IVF PRN (07:51)
[2016-11-20] MEDS: ASPIRIN *EC* 81 MG TABLET PO SCH (08:01)
[2016-11-20] MEDS: ASCORBIC ACID 500 MG TABLET PO SCH (08:01)
[2016-11-20] MEDS: CYANOCOBALAMIN (B-12) 500mcg TABLET PO SCH (08:01)
[2016-11-20] MEDS: FOLIC ACID 1 MG TABLET PO SCH ×2 (08:01→21:31)
[2016-11-20] MEDS: CALCIUM 600 + VIT D 400 TABLET PO SCH (08:01)
[2016-11-20] MEDS: MULTI-VITAMIN PLAIN TABLET PO SCH (08:02)
[2016-11-20] MEDS: SENNA + DOCUSATE TABLET PO SCH ×2 (08:02→21:31)
[2016-11-20] MEDS: SERTRALINE 100 MG TABLET PO SCH (08:02)
[2016-11-20] MEDS: GABAPENTIN 100 MG CAPSULE PO SCH ×3 (08:02→21:31)
[2016-11-20] MEDS: MEMANTINE 10 MG TABLET PO SCH ×2 (08:02→21:30)
[2016-11-20] MEDS: BuPROPion XL 150mg (24HR) TABLET PO SCH ×3 (08:24→21:31)
[2016-11-20] MEDS: AZITHROMYCIN IV 500 MG in NS 250ml 250 ML IV SCH (13:50)
--- NOTE | 2016-11-20 17:20 | Progress Note ---
Subjective: Pt is doing well today. Has minimal bruising on the R orbit. Otherwise remains pleasantly confused. Objective Vital signs: Temp Pulse Resp BP Pulse Ox 98.0 F 88 18 146/68 H 98 11/20/16 15:21 11/20/16 17:00 11/20/16 15:21 11/20/16 15:21 11/20/16 15:21 Rhythm: Normal Sinus Rhythm Weight: 66.1 kg - Constitutional Present: no acute distress, well nourished, well developed, thin - Routine HEENT Exam Head: Present: normocephalic Eye: Present: EOMI, PERRL - Routine Cardiovascular Exam Present: RRR - Routine Abdominal Exam Present: soft, non tender - Routine Extremities Exam Absent: cyanosis, clubbing, edema - Routine Musculoskeletal Exam Musculoskeletal: no clubbing or cyanosis - Routine Neurological Exam Present: alert Disoriented. Results - Labs CBC & Chem 7: 11/19/16 04:45 11/19/16 04:45 Assessment and Plan (1) Sepsis due to pneumonia Current visit: Yes Status: Acute (2) Conjunctivitis Current visit: Yes Status: Acute (3) Vascular dementia Current visit: Yes Status: Chronic (4) Acute encephalopathy Current visit: Yes Status: Acute (5) Pneumonia Current visit: Yes Status: Acute (6) HTN (hypertension) Current visit: Yes Status: Chronic (7) Hypothyroidism Current visit: Yes Status: Chronic (8) Osteoarthritis Current visit: Yes Status: Chronic (9) Age related osteoporosis Current visit: Yes Status: Chronic (10) OAB (overactive bladder) Current visit: Yes Status: Chronic (11) Depression Current visit: Yes Status: Chronic (12) Anxiety Current visit: Yes Status: Chronic Assessment and Plan: Rachel is a 81 YO WF that came with ? of PNA. She appears to be doing better today and is on no respiratory distress. She has no cough. CXR on admisison showed "............................ IMPRESSION: 1. Acute infiltrate at the left lung base. Post therapeutic follow-up is recommended. ..........................................." 1) PNA (?) - Will check a CXR in the AM - this is more likely atelectasis - If CXR is stable will de-escalate antibiotics. tool maintenance worker is working with family to place pt on [facility] or similar. Sepsis Assessment - Evaluation Sepsis screening result: No Definite Risk Hospital Course Summary Disclaimer: The visit summary below is not to be considered part of the above Progress Note. Hospital Course: 11/17/16 Admit, inpatient status for sepsis secondary to PNA. 1. PSI/PORT score is 102, indicating Risk class IV (8.2-9.3% mortality rate). 2. Rocephin + Zithromax daily; trend results of cultures (blood, sputum) 3. Culture eye drainage and start Polytrim for conjunctivitis 4. Recheck labs in am 5. Consult ST to assess swallow ability; may also need to consult PT/OT 6. Advanced care directives - need to clarify code status with DPOA listed in LTC papers 7. Home meds not reconciled at time of admission 11/18/16 Pneumonia -resp status is stable -cont azithro and rocephin, day #2 -sputum cx prelim - gram neg rods and gram pos cocci in pairs -BC - no growth after 1 day -SIRS improving - afebrile but occasionally tachycardic; no bands on this am's labs -mild JVD - will stop IVF and monitor oral intake -increase activity - will consult PT/OT d/t weakness conjunctivitis -cx shows few gram pos cocci -improved today - cont polytrim gtts Labs reviewed -TSH normal -vit B12 pending Risk for aspiration -speech evaluated - oral phase dysphagia, reduced mastication -recommending modified diet with chopped meats and thin liquids
[2016-11-20] MEDS: DONEPEZIL 10 MG TABLET PO SCH (21:30)
[2016-11-20] MEDS: QUETIAPINE 100 MG TABLET PO SCH (21:31)
[2016-11-20] MEDS: ALPRAZolam 0.5 MG TABLET PO SCH (21:31)
[2016-11-21] MEDS: [UNRECOGNIZED DRUG - OTHER] EACH EYE SCH ×3 (03:22→15:36)
[2016-11-21] MEDS: POLYMYXIN EACH EYE SCH ×3 (03:22→15:36)
[2016-11-21] MEDS: ASPIRIN PO PRN (07:13)
[2016-11-21] MEDS: ACETAMINOPHEN PO PRN (07:13)
[2016-11-21] MEDS: CAFFEINE PO PRN (07:13)
[2016-11-21] MEDS: BuPROPion XL 150mg (24HR) TABLET PO SCH ×2 (08:58→15:37)
[2016-11-21] MEDS: MEMANTINE 10 MG TABLET PO SCH (08:58)
[2016-11-21] MEDS: CYANOCOBALAMIN (B-12) 500mcg TABLET PO SCH (08:58)
[2016-11-21] MEDS: MULTI-VITAMIN PLAIN TABLET PO SCH (08:58)
[2016-11-21] MEDS: FERROUS SULFATE 324 MG TABLET PO SCH (08:58)
[2016-11-21] MEDS: GABAPENTIN 100 MG CAPSULE PO SCH ×2 (08:58→15:36)
[2016-11-21] MEDS: SERTRALINE 100 MG TABLET PO SCH (08:58)
[2016-11-21] MEDS: FOLIC ACID 1 MG TABLET PO SCH (08:58)
[2016-11-21] MEDS: CALCIUM 600 + VIT D 400 TABLET PO SCH (08:59)
[2016-11-21] MEDS: SENNA + DOCUSATE TABLET PO SCH (08:59)
[2016-11-21] MEDS: CEFTRIAXONE 1 G in NS 100 ML IV SCH (08:59)
[2016-11-21] MEDS: ASPIRIN *EC* 81 MG TABLET PO SCH (09:02)
[2016-11-21] MEDS: ASCORBIC ACID 500 MG TABLET PO SCH (09:02)
--- NOTE | 2016-11-21 14:33 | Discharge Summary ---
Discharge Plan - Med Rec/Dispo Referrals/Follow Up: Eboni Gonzalez MD [Family Provider] - [place] Instructions: Sepsis (GEN), Pneumonia (GEN) Prescriptions: New Acetaminophen [Tylenol] 650 mg PO Q5H PRN PRN Reason: Discomfort Albuterol Neb (0.5%) [Proventil Neb (0.5%)] 2.5 mg IH Q2H PRN ampul PRN Reason: Wheezing Continue ALPRAZolam [Alprazolam] 0.5 mg PO HS #0 BuPROPion XL [Wellbutrin Xl] 150 mg PO TID #0 Beta-Carotene(A)-Vits C,E/Mins [Vision Vitamins] 1 tab PO DAILY Calcium Carbonate/Vitamin D3 [Calcium 600-Vit D3 400 Tablet] 1 tab PO DAILY Aspirin [Aspirin EC] 81 mg PO DAILY ALPRAZolam [Xanax] 0.25 mg PO DAILY PRN PRN Reason: Anxiety Ascorbic Acid 500 mg PO DAILY #0 Aspirin/Acetaminophen/Caffeine [Excedrin Extra Strength Caplet] 1 tab PO Q4H PRN PRN Reason: Pain No Action Cyanocobalamin (Vitamin B-12) [B-12] 1,000 mcg PO DAILY #0 Sennosides/Docusate Sodium [Sm Senna-S Tablet] 1 tab PO BID #0 Ferrous Sulfate 325 mg PO WB #0 Sertraline [Zoloft] 100 mg PO DAILY Folic Acid [Folate] 1 mg PO BID Quetiapine [Seroquel] 100 mg PO HS Gabapentin 100 mg PO TID #0 guaiFENesin [Guaifenesin] 400 mg PO Q4H PRN #0 PRN Reason: CONGESTION Lisinopril [Prinivil] 40 mg PO HS Memantine HCl/Donepezil HCl [Namzaric 28 mg-10 mg Capsule] 1 cap PO DAILY Amoxicillin [Amoxicillin] 2,000 mg PO PRN PRN PRN Reason: Prn Orders Discharge Instructions/Outpatient Orders: Final Provider Discharge Instructions Location: Determined By Patient - Disposition 62 To [facility]
--- NOTE | 2016-11-21 14:45 | Discharge Summary ---
Discharge Information Date of admission: 11/17/16 13:25 Attending Physician: Burka Lobo MD Primary care physician: Eboni Gonzalez MD Consults: 11/21/16 IRU Screening [Inpatient Rehab Screening] [CONS] Routine - Discharge Diagnosis (1) Sepsis due to pneumonia Status: Acute (2) Conjunctivitis Status: Acute (3) Vascular dementia Status: Chronic (4) Acute encephalopathy Status: Acute (5) Pneumonia Status: Acute (6) HTN (hypertension) Status: Chronic (7) Hypothyroidism Status: Chronic (8) Osteoarthritis Status: Chronic (9) Age related osteoporosis Status: Chronic (10) OAB (overactive bladder) Status: Chronic (11) Depression Status: Chronic (12) Anxiety Status: Chronic - Laboratory Labs: 11/19/16 04:45 11/19/16 04:45 - Microbiology Microbiology 11/18/16 05:00 Sputum, Expectorated Gram Stain - Final 11/18/16 05:00 Sputum, Expectorated Sputum Culture - Final Normal Resp Elsa incl. Yeast 11/17/16 20:50 Conjunctivia, Right Eye Gram Stain - Final 11/17/16 20:50 Conjunctivia, Right Eye Eye Culture - Final Streptococcus viridans group Coag negative Staphylococcus Coag negative Staphylococcus#2 - Radiology Radiology: 11/17/16- Chest Xray- acute infiltrate in the left base History of Present Illness HPI: Rachel Cole is an 81 y/o woman with a hx of dementia and resident of [facility], who developed fever of 102, tachycardia 109 and tachypnea of 30 early in the morning of 11/17/16. Nsg records also indicate increased confusion, nausea, and complaints of a headache. EMS was contacted and she was taken to [facility], where evaluation showed LLL pneumonia. She met sepsis criteria with fever, tachycardia , tachypnea, and bandemia (15%). WBC was normal; chemistries were unremarkable. She was maintaining sats on room air. Unfortunately with her dementia, she was unable to verify these symptoms or contribute further to ROS or PMH. Per Rachel , she has felt fine and has been in good health without any fever, cough, headache, sinus problems, abdominal pain, nausea, vomiting, diarrhea, constipation, or urinary changes. Dr. Lobo was notified, and the pt was admitted to inpt status for IV abx, resp monitoring/treatment. LOS is expected to exceed 2 overnights. Hospital Course Hospital course: 11/17/16 Admit, inpatient status for sepsis secondary to PNA. 1. PSI/PORT score is 102, indicating Risk class IV (8.2-9.3% mortality rate). 2. Rocephin + Zithromax daily; trend results of cultures (blood, sputum) 3. Culture eye drainage and start Polytrim for conjunctivitis 4. Recheck labs in am 5. Consult ST to assess swallow ability; may also need to consult PT/OT 6. Advanced care directives - need to clarify code status with DPOA listed in LTC papers 7. Home meds not reconciled at time of admission 11/18/16 Pneumonia -resp status is stable -cont azithro and rocephin, day #2 -sputum cx prelim - gram neg rods and gram pos cocci in pairs -BC - no growth after 1 day -SIRS improving - afebrile but occasionally tachycardic; no bands on this am's labs -mild JVD - will stop IVF and monitor oral intake -increase activity - will consult PT/OT d/t weakness conjunctivitis -cx shows few gram pos cocci -improved today - cont polytrim gtts Labs reviewed -TSH normal -vit B12 pending Risk for aspiration -speech evaluated - oral phase dysphagia, reduced mastication -recommending modified diet with chopped meats and thin liquids 11/21/16- Discharge Patient is improving however does continue to have weakness from the severity of her sepsis and pneumonia. She has completed 5 day course of IV antibiotics including azithromycin and Rocephin. Her blood cultures are negative. Urine culture is negative. Ocular culture is positive for Streptococcus Viridans and she has been on Polytrim eye drops. She was seen and evaluated by PT today and recommended continued strengthening and work on safety and transfers. She was accepted to IRU. Above is a brief summarization of patient's stay. For a more detailed report, please refer to each individual progress note. Total discharge time greater than 35 minutes Discharge Plan - Med Rec/Dispo Referrals/Follow Up: Eboni Gonzalez MD [Family Provider] - [place] Instructions: Sepsis (GEN), Pneumonia (GEN) Prescriptions: New Acetaminophen [Tylenol] 650 mg PO Q5H PRN PRN Reason: Discomfort Albuterol Neb (0.5%) [Proventil Neb (0.5%)] 2.5 mg IH Q2H PRN ampul PRN Reason: Wheezing Continue ALPRAZolam [Alprazolam] 0.5 mg PO HS #0 BuPROPion XL [Wellbutrin Xl] 150 mg PO TID #0 Beta-Carotene(A)-Vits C,E/Mins [Vision Vitamins] 1 tab PO DAILY Calcium Carbonate/Vitamin D3 [Calcium 600-Vit D3 400 Tablet] 1 tab PO DAILY Aspirin [Aspirin EC] 81 mg PO DAILY ALPRAZolam [Xanax] 0.25 mg PO DAILY PRN PRN Reason: Anxiety Ascorbic Acid 500 mg PO DAILY #0 Aspirin/Acetaminophen/Caffeine [Excedrin Extra Strength Caplet] 1 tab PO Q4H PRN PRN Reason: Pain No Action Cyanocobalamin (Vitamin B-12) [B-12] 1,000 mcg PO DAILY #0 Sennosides/Docusate Sodium [Sm Senna-S Tablet] 1 tab PO BID #0 Ferrous Sulfate 325 mg PO WB #0 Sertraline [Zoloft] 100 mg PO DAILY Folic Acid [Folate] 1 mg PO BID Quetiapine [Seroquel] 100 mg PO HS Gabapentin 100 mg PO TID #0 guaiFENesin [Guaifenesin] 400 mg PO Q4H PRN #0 PRN Reason: CONGESTION Lisinopril [Prinivil] 40 mg PO HS Memantine HCl/Donepezil HCl [Namzaric 28 mg-10 mg Capsule] 1 cap PO DAILY Amoxicillin [Amoxicillin] 2,000 mg PO PRN PRN PRN Reason: Prn Orders Discharge Instructions/Outpatient Orders: Final Provider Discharge Instructions Location: Determined By Patient - Disposition 62 To [facility]
[2016-11-21] MEDS: AZITHROMYCIN IV 500 MG in NS 250ml 250 ML IV SCH (15:35)
== END 2016-11-21 17:15 | DRG 871 ==
LOC: ED 10:38 → MED 13:25
PROVIDERS: ADMIT Hospitalist; ATTEND Hospitalist

== ENCOUNTER 2016-11-21 17:47 | Inpatient (IN) ==
[2016-11-21] MEDS ORDERED: POLYETHYL GLYCOL 3350 17gm PACKET PO PRN (17:59)
[2016-11-21] MEDS ORDERED: ACETAMINOPHEN 325 MG TABLET PO PRN (17:59)
[2016-11-21] MEDS ORDERED: ONDANSETRON 4 MG/2 ML INJECTION IVP PRN (17:59)
[2016-11-21] MEDS ORDERED: ALPRAZolam 0.25 MG TABLET PO PRN (17:59)
[2016-11-21] MEDS ORDERED: ALBUTEROL 2.5mg/0.5ml (0.5%) NEB IH PRN (17:59)
[2016-11-21] MEDS ORDERED: GUAIFENESIN 400MG TABLET PO PRN (17:59)
[2016-11-21] MEDS ORDERED: BISACODYL 10 MG SUPPOSITORY RECTALLY PRN (17:59)
[2016-11-21 18:12] VITALS: BMI 24.3
[2016-11-21] MEDS: MEMANTINE 10 MG TABLET PO SCH (21:06)
[2016-11-21] MEDS: QUETIAPINE 100 MG TABLET PO SCH (21:06)
[2016-11-21] MEDS: SENNA + DOCUSATE TABLET PO SCH (21:06)
[2016-11-21] MEDS: DONEPEZIL 10 MG TABLET PO SCH (21:07)
[2016-11-21] MEDS: GABAPENTIN 100 MG CAPSULE PO SCH (21:07)
[2016-11-21] MEDS: FOLIC ACID 1 MG TABLET PO SCH (21:08)
[2016-11-21] MEDS: POLYMYXIN EACH EYE SCH (21:08)
[2016-11-21] MEDS: [UNRECOGNIZED DRUG - OTHER] EACH EYE SCH (21:08)
[2016-11-21] MEDS: BuPROPion XL 150mg (24HR) TABLET PO SCH (21:09)
[2016-11-21] MEDS: ALPRAZolam 0.5 MG TABLET PO SCH (21:12)
[2016-11-22] MEDS: [UNRECOGNIZED DRUG - OTHER] EACH EYE SCH ×4 (03:32→21:17)
[2016-11-22] MEDS: POLYMYXIN EACH EYE SCH ×4 (03:32→21:17)
[2016-11-22 05:31] LABS: Hematocrit 35.1 % (36-46); Hemoglobin 11.1 GM/DL (12-16); Mean Corpuscular Hemoglobin 29.4 UUG (26-34); Mean Corpuscular Volume 92.9 UM3 (80-100); Mean Platelet Volume 9.7 UM3 (9.4-12.4); Platelet Count 227 T/MM3 (130-400); Red Blood Count 3.78 M/MM3 (4.00-5.20); White Blood Count 6.9 T/MM3 (4.5-11.0)
[2016-11-22 05:51] LABS: Anion Gap 10 MEQ/L (5-15); BUN/Creatinine Ratio 14 RATIO (6-26); CO2 - Carbon Dioxide - NMC 25 MEQ/L (22-30); Calcium - NMC 9.4 MG/DL (8.4-10.2); Chloride - NMC 107 MEQ/L (98-107); Glomerular Filtration Rate 60; Glucose - NMC 85 MG/DL (65-110); NA - Sodium - NMC 142 MEQ/L (134-144); Osmolality,Calculated 272 MOSM/KG (261-280); Potassium 3.6 MEQ/L (3.6-5)
[2016-11-22 06:42] LABS: Total Cells Counted 100 %
[2016-11-22] MEDS: CYANOCOBALAMIN (B-12) 500mcg TABLET PO SCH (08:30)
[2016-11-22] MEDS: MEMANTINE 10 MG TABLET PO SCH ×2 (08:30→21:17)
[2016-11-22] MEDS: GABAPENTIN 100 MG CAPSULE PO SCH ×3 (08:30→21:17)
[2016-11-22] MEDS: FOLIC ACID 1 MG TABLET PO SCH ×2 (08:30→21:17)
[2016-11-22] MEDS: FERROUS SULFATE 324 MG TABLET PO SCH (08:31)
[2016-11-22] MEDS: CALCIUM 600 + VIT D 400 TABLET PO SCH (08:31)
[2016-11-22] MEDS: BuPROPion XL 150mg (24HR) TABLET PO SCH ×3 (08:31→21:17)
[2016-11-22] MEDS: SENNA + DOCUSATE TABLET PO SCH ×2 (08:31→21:17)
[2016-11-22] MEDS: MULTI-VITAMIN PLAIN TABLET PO SCH (08:31)
[2016-11-22] MEDS: SERTRALINE 100 MG TABLET PO SCH (08:31)
--- NOTE | 2016-11-22 08:34 | Consult Note ---
Consult Information - Data of Consult Patient: known to practice within the last 3 years Consult date: 11/22/16 Requesting Physician: Tyrone Cuevas MD Primary Care Provider: Eboni Gonzalez MD Family Provider: Eboni Gonzalez MD - Consult Narrative Reason for consult: Recent sepsis History of present illness: Rachle is a known to the hospitalist service as she was recently admitted on for Sepsis with pneumonia. She was acutely encephalopathic likely related to her illness. She was also found to have a acute conjunctivitis which was positive for streptococcus. She completed 5 day course of Azithromycin and Rocephin for pulmonary coverage. She continues on Polytrin eye drops since . She was seen and evaluated by physical therapy and displayed weakness with some gait concerns. She was screened and accepted to inpatient rehabilitation unit for ongoing strengthening. Rachel is seen this morning for inital medical consultation. She is alert and pleasant and verbalizes that she is not sure why she is here. Denies having pain or shortness of breath. She is ambulating with a walker assisted by PT in the gym and is tolerating theapry well. Morning labs are reviewed, WBC 6.9, Hgb 11.1, hematocrit 35.1, platelet count 227, neutrophils 87%. His metabolic panel is normal. She remains afebrile at 98.0, pulse in the 80s. Last reported blood pressure 158/82, room air saturations 96%. Review of Systems All systems: reviewed and no additional remarkable complaints except as stated Review of systems: She denies all ROS on examination [facility] Patient Stated Medical History Alzheimer's Disease Dementia Cataracts Dental Problems Hearing Loss Hypertension Pneumonia Hx Incontinence Bipolar Disorder Depression Post Menopausal Surgical History: Rt shoulder hemiarthroplasty 07/11/16 - Dr. Lai. Colonoscopy 01/12/15. B/L Knee replacement. Rt femoral head replacement. appendectomy. Lung biopsy. Myringotomy. Tonsillectomy - Social History Smoking status: Never smoker Current residence: Assisted Living ([facility]) Social history: PCP Dr Gonzalez Medications Home Medications Medication Instructions Recorded Confirmed Type ALPRAZolam [Alprazolam] 0.5 mg PO HS #0 06/04/10 11/21/16 History BuPROPion XL [Wellbutrin Xl] 150 mg PO TID #0 11/22/14 11/21/16 History Gabapentin 100 mg PO TID #0 10/24/15 11/21/16 History Ascorbic Acid 500 mg PO DAILY #0 09/26/16 11/21/16 History Cyanocobalamin (Vitamin B-12) 1,000 mcg PO DAILY #0 09/26/16 11/21/16 History [B-12] Ferrous Sulfate 325 mg PO WB #0 09/26/16 11/21/16 History Sennosides/Docusate Sodium [Sm 1 tab PO BID #0 09/26/16 11/21/16 History Senna-S Tablet] guaiFENesin [Guaifenesin] 400 mg PO Q4H PRN #0 09/26/16 11/21/16 History ALPRAZolam [Xanax] 0.25 mg PO DAILY PRN 11/17/16 11/21/16 History Amoxicillin [Amoxicillin] 2,000 mg PO PRN PRN 11/17/16 11/21/16 History Aspirin [Aspirin EC] 81 mg PO DAILY 11/17/16 11/21/16 History Aspirin/Acetaminophen/Caffeine 1 tab PO Q4H PRN 11/17/16 11/21/16 History [Excedrin Extra Strength Caplet] Beta-Carotene(A)-Vits C,E/Mins 1 tab PO DAILY 11/17/16 11/21/16 History [Vision Vitamins] Calcium Carbonate/Vitamin D3 1 tab PO DAILY 11/17/16 11/21/16 History [Calcium 600-Vit D3 400 Tablet] Folic Acid [Folate] 1 mg PO BID 11/17/16 11/21/16 History Lisinopril [Prinivil] 40 mg PO HS 11/17/16 11/21/16 History Memantine HCl/Donepezil HCl 1 cap PO DAILY 11/17/16 11/21/16 History [Namzaric 28 mg-10 mg Capsule] Quetiapine [Seroquel] 100 mg PO HS 11/17/16 11/21/16 History Sertraline [Zoloft] 100 mg PO DAILY 11/17/16 11/21/16 History Allergies Allergy/AdvReac Type Severity Reaction Status Date / Time codeine Allergy Unknown ITCHING Verified 07/10/16 05:29 morphine Allergy Unknown Verified 07/10/16 05:29 Exam Vital Signs: Temp Pulse Resp BP Pulse Ox 98.0 F 88 18 158/82 H 96 11/21/16 19:55 11/21/16 19:55 11/21/16 19:55 11/21/16 19:55 11/21/16 19:55 Height: 1.65 m Weight: 66.5 kg Body Mass Index: 24.3 - Constitutional Present: no acute distress - Routine HEENT Exam Head: Present: normocephalic, atraumatic Eye: Present: EOMI, PERRL ENT: Present: mucous membranes moist - Routine Neck Exam Present: full ROM - Routine Respiratory Exam Present: CTA bilaterally - Routine Cardiovascular Exam Present: RRR, S1, S2, no murmur - Routine Abdominal Exam Present: soft, normoactive bowel sounds, non distended, non tender - Routine Extremities Exam Present: full ROM - Routine Back/Spine/Pelvis Exam Back/Spine: Present: full ROM - Routine Skin Exam Present: intact, warm - Routine Neurological Exam Present: alert, CN II-XII intact - Routine Psychiatric Exam Present: normal affect, normal thought process Results - Labs CBC & Chem 7: 11/22/16 04:19 11/22/16 04:19 Assessment and Plan (1) Conjunctivitis Current visit: No Status: Acute (2) HTN (hypertension) Current visit: No Status: Chronic (3) Hypothyroidism Current visit: No Status: Chronic (4) Anxiety Current visit: No Status: Chronic (5) Depression Current visit: No Status: Chronic (6) OAB (overactive bladder) Current visit: No Status: Chronic (7) Vascular dementia Current visit: No Status: Chronic (8) Osteoarthritis Current visit: No Status: Chronic (9) Age related osteoporosis Current visit: No Status: Chronic DVT Prophylaxis: SCD's Assessment and Plan: Rachel resides at [facility]. Agree with admission to IRU for ongoing strengthening given recent significant illness of sepsis, Pneumonia and encephalopathy. Patient did complete a five-day course of IV antibiotics. She does continue to use Polytrim eyedrops for treatment of conjunctivitis. Continue with senna plus, MiraLAX and milk of magnesia for ongoing bowel motivation Encourage work with PT/OT for ongoing strengthening All morning labs remain stable. Appreciate consultation for medical management of existing comorbidities. At time of discharge medical care will return to primary care provider, Dr. Gonzalez Hospital Course Summary Disclaimer: The visit summary below is not to be considered part of the above Progress Note. Hospital Course: 11/22/16 08:42 Rachel resides at [facility]. Agree with admission to IRU for ongoing strengthening given recent significant illness of sepsis, Pneumonia and encephalopathy. Patient did complete a five-day course of IV antibiotics. She does continue to use Polytrim eyedrops for treatment of conjunctivitis. Continue with senna plus, MiraLAX and milk of magnesia for ongoing bowel motivation Encourage work with PT/OT for ongoing strengthening All morning labs remain stable. Appreciate consultation for medical management of existing comorbidities. At time of discharge medical care will return to primary care provider, Dr. Gonzalez Sepsis Assessment - Evaluation Sepsis screening result: No Definite Risk
[2016-11-22] MEDS: ASPIRIN *EC* 81 MG TABLET PO SCH (08:49)
[2016-11-22] MEDS: ASCORBIC ACID 500 MG TABLET PO SCH (08:50)
[2016-11-22] MEDS ORDERED: FALL RISK - PHARMACY CONSULT XX PRN (09:34)
[2016-11-22] MEDS: ALPRAZolam 0.5 MG TABLET PO SCH (21:17)
[2016-11-22] MEDS: QUETIAPINE 100 MG TABLET PO SCH (21:17)
[2016-11-22] MEDS: DONEPEZIL 10 MG TABLET PO SCH (21:17)
[2016-11-23] MEDS: [UNRECOGNIZED DRUG - OTHER] EACH EYE SCH ×4 (02:23→21:41)
[2016-11-23] MEDS: APAP/ASA/Caffeine 1 TAB PO PRN (02:23)
[2016-11-23] MEDS: POLYMYXIN EACH EYE SCH ×4 (02:23→21:41)
[2016-11-23] MEDS: FERROUS SULFATE 324 MG TABLET PO SCH (08:41)
[2016-11-23] MEDS: GABAPENTIN 100 MG CAPSULE PO SCH ×3 (08:42→21:42)
[2016-11-23] MEDS: MEMANTINE 10 MG TABLET PO SCH ×2 (08:42→21:42)
[2016-11-23] MEDS: ASPIRIN *EC* 81 MG TABLET PO SCH (08:42)
[2016-11-23] MEDS: FOLIC ACID 1 MG TABLET PO SCH ×2 (08:42→21:42)
[2016-11-23] MEDS: CALCIUM 600 + VIT D 400 TABLET PO SCH (08:42)
[2016-11-23] MEDS: MULTI-VITAMIN PLAIN TABLET PO SCH (08:43)
[2016-11-23] MEDS: SENNA + DOCUSATE TABLET PO SCH ×2 (08:43→21:42)
[2016-11-23] MEDS: BuPROPion XL 150mg (24HR) TABLET PO SCH ×3 (08:44→21:42)
[2016-11-23] MEDS: SERTRALINE 100 MG TABLET PO SCH (08:44)
[2016-11-23] MEDS: CYANOCOBALAMIN (B-12) 500mcg TABLET PO SCH (08:44)
[2016-11-23] MEDS: ASCORBIC ACID 500 MG TABLET PO SCH (08:44)
[2016-11-23] MEDS: QUETIAPINE 100 MG TABLET PO SCH (21:43)
[2016-11-23] MEDS: DONEPEZIL 10 MG TABLET PO SCH (21:43)
[2016-11-23] MEDS: ALPRAZolam 0.5 MG TABLET PO SCH (21:46)
[2016-11-24] MEDS: POLYMYXIN EACH EYE SCH ×3 (01:56→08:26)
[2016-11-24] MEDS: [UNRECOGNIZED DRUG - OTHER] EACH EYE SCH ×3 (01:56→08:26)
[2016-11-24] MEDS: APAP/ASA/Caffeine 1 TAB PO PRN (05:33)
[2016-11-24] MEDS: MEMANTINE 10 MG TABLET PO SCH ×2 (08:26→20:40)
[2016-11-24] MEDS: CALCIUM 600 + VIT D 400 TABLET PO SCH (08:26)
[2016-11-24] MEDS: ASCORBIC ACID 500 MG TABLET PO SCH (08:26)
[2016-11-24] MEDS: MULTI-VITAMIN PLAIN TABLET PO SCH (08:26)
[2016-11-24] MEDS: GABAPENTIN 100 MG CAPSULE PO SCH ×3 (08:26→20:40)
[2016-11-24] MEDS: CYANOCOBALAMIN (B-12) 500mcg TABLET PO SCH (08:26)
[2016-11-24] MEDS: BuPROPion XL 150mg (24HR) TABLET PO SCH ×3 (08:26→20:40)
[2016-11-24] MEDS: SENNA + DOCUSATE TABLET PO SCH ×2 (08:27→20:40)
[2016-11-24] MEDS: FERROUS SULFATE 324 MG TABLET PO SCH (08:27)
[2016-11-24] MEDS: SERTRALINE 100 MG TABLET PO SCH (08:27)
[2016-11-24] MEDS: FOLIC ACID 1 MG TABLET PO SCH ×2 (08:27→20:40)
[2016-11-24] MEDS: ASPIRIN *EC* 81 MG TABLET PO SCH (08:27)
--- NOTE | 2016-11-24 14:06 | Progress Note ---
Subjective: Ray is seen this morning during breakfast. She is pleasant during examination and states that she wants to go home. Nursing staff does report that she is having some increased confusion at times that is worse overnight. At times she displays concern for safety, not waiting for staff to assist. She has acute staff of stealing clothes at times. Today on examination. She denies having pain or feeling short of breath. She is comfortably breathing on room air without distress. Blood pressure this morning 148/81. Objective Vital signs: Temp Pulse Resp BP Pulse Ox 98.3 F 97 18 148/81 H 97 11/23/16 20:07 11/24/16 08:00 11/24/16 08:00 11/24/16 08:00 11/24/16 08:00 Body Mass Index: 24.3 - Constitutional Present: no acute distress - Routine HEENT Exam Head: Present: normocephalic, atraumatic Eye: Present: EOMI, PERRL ENT: Present: mucous membranes moist - Routine Respiratory Exam Present: CTA bilaterally - Routine Cardiovascular Exam Present: RRR, S1, S2 - Routine Abdominal Exam Present: soft, normoactive bowel sounds - Routine Extremities Exam Present: full ROM - Routine Back/Spine/Pelvis Exam Back/Spine: Present: full ROM - Routine Musculoskeletal Exam Musculoskeletal: Present: no tenderness - Routine Skin Exam Present: intact, warm - Routine Neurological Exam Present: alert, CN II-XII intact, moving all extremities intermittent confusion at times - Routine Psychiatric Exam Present: normal affect, cooperative Results - Labs CBC & Chem 7: 11/22/16 04:19 11/22/16 04:19 Assessment and Plan (1) Conjunctivitis Current visit: No Status: Acute (2) HTN (hypertension) Current visit: No Status: Chronic (3) Hypothyroidism Current visit: No Status: Chronic (4) Anxiety Current visit: No Status: Chronic (5) Depression Current visit: No Status: Chronic (6) OAB (overactive bladder) Current visit: No Status: Chronic (7) Vascular dementia Current visit: No Status: Chronic (8) Osteoarthritis Current visit: No Status: Chronic (9) Age related osteoporosis Current visit: No Status: Chronic Assessment and Plan: 11/24 Overall she appears to be medically stable. Has completed 7 day course of Polytrim eyedrops for treatment of conjunctivitis. Will discontinue today BP has been intermittently elevated. Continue to monitor. Continue with senna plus, MiraLAX and milk of magnesia for ongoing bowel motivation Encourage work with PT/OT for ongoing strengthening Sepsis Assessment - Evaluation Sepsis screening result: No Definite Risk Hospital Course Summary Disclaimer: The visit summary below is not to be considered part of the above Progress Note. Hospital Course: 11/22/16 08:42 Rachel resides at [facility]. Agree with admission to IRU for ongoing strengthening given recent significant illness of sepsis, Pneumonia and encephalopathy. Patient did complete a five-day course of IV antibiotics. She does continue to use Polytrim eyedrops for treatment of conjunctivitis. Continue with senna plus, MiraLAX and milk of magnesia for ongoing bowel motivation Encourage work with PT/OT for ongoing strengthening All morning labs remain stable. Appreciate consultation for medical management of existing comorbidities. At time of discharge medical care will return to primary care provider, Dr. Gonzalez 11/24 Overall she appears to be medically stable. Has completed 7 day course of Polytrim eyedrops for treatment of conjunctivitis. Will discontinue today BP has been intermittently elevated. Continue to monitor. Continue with senna plus, MiraLAX and milk of magnesia for ongoing bowel motivation Encourage work with PT/OT for ongoing strengthening
[2016-11-24] MEDS: DONEPEZIL 10 MG TABLET PO SCH (20:40)
[2016-11-24] MEDS: QUETIAPINE 100 MG TABLET PO SCH (20:40)
[2016-11-24] MEDS: ALPRAZolam 0.5 MG TABLET PO SCH (20:40)
[2016-11-25] MEDS: DONEPEZIL 10 MG TABLET PO SCH ×2 (01:35→20:27)
[2016-11-25] MEDS: ALPRAZolam 0.5 MG TABLET PO SCH ×2 (01:36→20:30)
[2016-11-25] MEDS: QUETIAPINE 100 MG TABLET PO SCH ×2 (01:36→20:27)
[2016-11-25] MEDS: APAP/ASA/Caffeine 1 TAB PO PRN (02:52)
[2016-11-25] MEDS: FOLIC ACID 1 MG TABLET PO SCH ×2 (09:35→20:27)
[2016-11-25] MEDS: FERROUS SULFATE 324 MG TABLET PO SCH (09:35)
[2016-11-25] MEDS: ASCORBIC ACID 500 MG TABLET PO SCH (09:36)
[2016-11-25] MEDS: CYANOCOBALAMIN (B-12) 500mcg TABLET PO SCH (09:36)
[2016-11-25] MEDS: MEMANTINE 10 MG TABLET PO SCH ×2 (09:36→20:27)
[2016-11-25] MEDS: CALCIUM 600 + VIT D 400 TABLET PO SCH (09:36)
[2016-11-25] MEDS: MULTI-VITAMIN PLAIN TABLET PO SCH (09:37)
[2016-11-25] MEDS: ASPIRIN *EC* 81 MG TABLET PO SCH (09:37)
[2016-11-25] MEDS: GABAPENTIN 100 MG CAPSULE PO SCH ×3 (09:37→20:27)
[2016-11-25] MEDS: SERTRALINE 100 MG TABLET PO SCH (09:38)
[2016-11-25] MEDS: SENNA + DOCUSATE TABLET PO SCH ×2 (09:38→20:27)
[2016-11-25] MEDS: BuPROPion XL 150mg (24HR) TABLET PO SCH ×3 (09:38→20:27)
--- NOTE | 2016-11-25 12:48 | IRU Team Meeting ---
IRU Team Meeting - Nursing Vital Signs: Vital Signs - 24 hr 11/24/16 16:00 11/24/16 21:01 11/25/16 08:00 Temperature 98.1 F 98.4 F 97.5 F Pulse Rate 80 91 74 Respiratory Rate 18 18 18 Blood Pressure 159/88 H 146/76 H 146/99 H Pulse Oximetry 99 95 97 Current Medications: Acetaminophen (Tylenol) 650 mg PO Q5H PRN PRN Reason: Discomfort Acetaminophen/Aspirin/Caffeine (Excedrin Xs) 1 tab PO Q4H PRN PRN Reason: Pain Last Admin: 11/25/16 02:52 Dose: 1 tab Albuterol Sulfate (Proventil Neb (0.5%)) 2.5 mg IH Q2H PRN Alprazolam (Xanax) 0.5 mg PO HS [facility] Last Admin: 11/25/16 01:36 Dose: Not Given Alprazolam (Xanax) 0.25 mg PO DAILY PRN PRN Reason: Anxiety Ascorbic Acid (Vitamin C) 500 mg PO DAILY [facility] Last Admin: 11/25/16 09:36 Dose: 500 mg Aspirin (Ecotrin) 81 mg PO DAILY [facility] Last Admin: 11/25/16 09:37 Dose: 81 mg Bisacodyl (Dulcolax) 10 mg RECTALLY DAILY PRN PRN Reason: Constipation Bupropion HCl (Wellbutrin Xl) 150 mg PO TID [facility] Last Admin: 11/25/16 09:38 Dose: 150 mg Calcium/Vitamin D (Caltrate + D) 1 tab PO DAILY [facility] Last Admin: 11/25/16 09:36 Dose: 1 tab Cyanocobalamin (Vit. B-12) 1,000 mcg PO DAILY [facility] Last Admin: 11/25/16 09:36 Dose: 1,000 mcg Donepezil HCl (Aricept) 10 mg PO HS [facility] Last Admin: 11/25/16 01:35 Dose: Not Given Ferrous Sulfate (Feosol) 324 mg PO WB [facility] Last Admin: 11/25/16 09:35 Dose: 324 mg Folic Acid (Folate) 1 mg PO BID [facility] Last Admin: 11/25/16 09:35 Dose: 1 mg Gabapentin (Neurontin) 100 mg PO TID [facility] Last Admin: 11/25/16 09:37 Dose: 100 mg Guaifenesin (Mucinex) 400 mg PO Q4H PRN PRN Reason: CONGESTION Magnesium Hydroxide (Mom) 30 ml PO DAILY PRN PRN Reason: Constipation Memantine (Namenda) 10 mg PO BID [facility] Last Admin: 11/25/16 09:36 Dose: 10 mg Multivitamins (Theragran) 1 tab PO DAILY [facility] Last Admin: 11/25/16 09:37 Dose: 1 tab Pharmacy Consult () 1 each XX ONE TIME PRN PRN Reason: PRN orders Polyethylene Glycol (Miralax) 17 gm PO DAILY PRN PRN Reason: Constipation Quetiapine Fumarate (Seroquel) 100 mg PO HS [facility] Last Admin: 11/25/16 01:36 Dose: Not Given Senna/Docusate Sodium (Senna Plus Tablet) 1 tab PO BID [facility] Last Admin: 11/25/16 09:38 Dose: 1 tab Sertraline HCl (Zoloft) 100 mg PO DAILY [facility] Last Admin: 11/25/16 09:38 Dose: 100 mg Comments: requires evening meds before 8pm or becomes very beligerent - Physical Therapy Comments: contact guard. Loss of balance frequently and cannot be alone at this time. - Occupational Therapy Lower Body Dressing Comment: Recommending hip kit and carryover review due to cognition issues. - Care Plan Interventions/Goals: Barriers to d/c: impulsivity, safety, cognition She will require supervision 22/12. Difficult to go home.Previously in assisted living and will require care home care.
--- NOTE | 2016-11-25 16:33 | IRU History & Physical Report ---
HPI IRU Date: Chief complaint: Post sepsis encephalopathy HPI: 81 yo female with recent admission to hospital with pneumonia and sepsis. She has had confusion and encephalopathy noted during admission. This was not present prior to this infection. She has been bed bound since admission on . Pneumonia is improving and pt is now unable to manage ADL's due to weakness and not yet fully resolved encephalopathy and confusion. She will be admitted to IRU for strengthening and safety training with medical oversight. Review of Systems All systems: reviewed and no additional remarkable complaints except as stated - Musculoskeletal Musculoskeletal: Present: as per HPI - Neurological Neurological: Present: as per HPI - Psychiatric Psychiatric: Present: as per HPI PFSH Patient Stated Medical History Alzheimer's Disease Yes Dementia Yes Cataracts Yes Dental Problems Yes: TEETH FILLINGS Hearing Loss Yes Hypertension Yes Pneumonia Yes Constipation No Hx Incontinence Yes Bipolar Disorder Yes Depression Yes Post Menopausal Yes Surgical History: Rt shoulder hemiarthroplasty 07/11/16 - Dr. Lai. Colonoscopy 01/12/15. B/L Knee replacement. Rt femoral head replacement. appendectomy. Lung biopsy. Myringotomy. Tonsillectomy - Social History Smoking status: Never smoker Substance use type: does not use Alcohol intake frequency: does not drink Current residence: Assisted Living Medications Home Medications Medication Instructions Recorded Confirmed Type ALPRAZolam [Alprazolam] 0.5 mg PO HS #0 06/04/10 11/21/16 History BuPROPion XL [Wellbutrin Xl] 150 mg PO TID #0 11/22/14 11/21/16 History Gabapentin 100 mg PO TID #0 10/24/15 11/21/16 History Ascorbic Acid 500 mg PO DAILY #0 09/26/16 11/21/16 History Cyanocobalamin (Vitamin B-12) 1,000 mcg PO DAILY #0 09/26/16 11/21/16 History [B-12] Ferrous Sulfate 325 mg PO WB #0 09/26/16 11/21/16 History Sennosides/Docusate Sodium [Sm 1 tab PO BID #0 09/26/16 11/21/16 History Senna-S Tablet] guaiFENesin [Guaifenesin] 400 mg PO Q4H PRN #0 09/26/16 11/21/16 History ALPRAZolam [Xanax] 0.25 mg PO DAILY PRN 11/17/16 11/21/16 History Amoxicillin [Amoxicillin] 2,000 mg PO PRN PRN 11/17/16 11/21/16 History Aspirin [Aspirin EC] 81 mg PO DAILY 11/17/16 11/21/16 History Aspirin/Acetaminophen/Caffeine 1 tab PO Q4H PRN 11/17/16 11/21/16 History [Excedrin Extra Strength Caplet] Beta-Carotene(A)-Vits C,E/Mins 1 tab PO DAILY 11/17/16 11/21/16 History [Vision Vitamins] Calcium Carbonate/Vitamin D3 1 tab PO DAILY 11/17/16 11/21/16 History [Calcium 600-Vit D3 400 Tablet] Folic Acid [Folate] 1 mg PO BID 11/17/16 11/21/16 History Lisinopril [Prinivil] 40 mg PO HS 11/17/16 11/21/16 History Memantine HCl/Donepezil HCl 1 cap PO DAILY 11/17/16 11/21/16 History [Namzaric 28 mg-10 mg Capsule] Quetiapine [Seroquel] 100 mg PO HS 11/17/16 11/21/16 History Sertraline [Zoloft] 100 mg PO DAILY 11/17/16 11/21/16 History Allergies Allergy/AdvReac Type Severity Reaction Status Date / Time codeine Allergy Unknown ITCHING Verified 07/10/16 05:29 morphine Allergy Unknown Verified 07/10/16 05:29 Exam Vital Signs: Temperature 98.1 F 11/25/16 16:00 Pulse Rate 83 11/25/16 16:00 Respiratory Rate 14 11/25/16 16:00 Blood Pressure 158/75 H 11/25/16 16:00 Pulse Oximetry 92 11/25/16 16:00 Oxygen Delivery Method Room Air Telemetry Rhythm: Sinus Rhythm Height: 1.65 m Weight: 66.5 kg Body Mass Index: 24.3 - Constitutional Present: mild distress - Routine HEENT Exam Head: Present: normocephalic Eye: Present: EOMI, PERRL - Routine Neck Exam Present: full ROM - Routine Chest/Breast/Axilla Exam Chest wall: Absent: tenderness, chest tube - Routine Respiratory Exam Present: crackles (very mild RLL), distant breath sounds - Routine Cardiovascular Exam Present: RRR, no murmur - Routine Abdominal Exam Present: soft, normoactive bowel sounds, non distended, non tender - Routine Extremities Exam Absent: cyanosis, clubbing, edema - Routine Skin Exam Present: intact, dry, warm - Routine Neurological Exam Present: alert Difficult to have conversation, pt fades away during. Sepsis Assessment - Evaluation Sepsis screening result: No Definite Risk IRU A/P (1) Myopathy Current visit: Yes Status: Acute PT and OT to work with pt to develop plan of care re weakness and poor stamina. (2) Acute encephalopathy Current visit: No Status: Acute Medical will follow. Staff aware of increased risk of fall and injury. (3) Sepsis due to pneumonia Current visit: No Status: Acute Medical treating. DVT Prophylaxis: SCD's - Course Hospital Course: Tyrone Cuevas MD: - Interventions to Obtain Goals PT Treatment Plan: Balance/Proprioception, Functional Activities, Gait Training , Patient/Family Education, Therapeutic Exercise OT Treatment Plan: ADL (Basic Care), Balance Training, IADL, Pt./Family Education, Ther. Exercise for ADL
--- NOTE | 2016-11-25 16:50 | IRU 24Hr Post Admit Eval ---
24 Hr Post Admission Physical - Relevant Changes Relevant Changes: No Reviewed: I have reviewed the patient's information and concur with the finding and results of the pre-admission screen. Certification: I certify the patient for rehabilitation. 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 at home or school - Current Functional Status Failed Alternative Therapy: Arrived from Acute Care Patient Requirements: The patient requires oversight by rehabilitation physician to manage their rehabilitation treatment plan and multidisciplinary approach to care that can only be provided in an IRF and requires a multidisciplinary approach to care, provided by professional PTs, OTs, STs, dieticians, RTs, rehabilitation nurses and is not available in lesser levels of care. Limitiations Req: ADL Impairment, Limited Mobility, Cognitive Impairment Physical Therapy Minutes: 90 Occupational Therapy Minutes: 90 Therapy: The patient is to receive therapy at least 5 days a week. - Complications/Comorbidities Impact on Functional Outcomes: Pt will require extra time for recovery due to age and severity of sepsis. Barriers to Discharge: Weakness, Balance, Endurance, Comprehension, Medical Limitation - Plan to Avoid Complications Plan to Avoid Complications: The patient cannot receive this care in a lesser intensive setting such as Assisted or Outpatient Therapy due to the patient requiring medical supervision of encephalopathy and pneumonia/sepsis.
--- NOTE | 2016-11-25 17:33 | IRU Plan of Care ---
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, unspecified Status: Acute Classification: Present on IRF Admission, IRF Tx That Should Address Diagnosis (2) Acute encephalopathy Code(s): G93.40 - Encephalopathy, unspecified Status: Acute Classification: Present on IRF Admission, Diagnosis Requiring Medical Follow Up (3) Sepsis due to pneumonia Code(s): J18.9 - Pneumonia, unspecified organism; A41.9 - Sepsis, unspecified organism Status: Acute Classification: Present on IRF Admission, Diagnosis Requiring Medical Follow Up - Relevant Changes Relevant Changes: No Reviewed: I have reviewed the patient's information and concur with the finding and results of the pre-admission screen. Certification: I certify the patient for rehabilitation. - Medical Prognosis Medical Prognosis: Fair Vital Signs: - Anticipated Interventions Anticipated Interventions: The patient requires inpatient IRF care for PT, OT, and/or ST for residuals remaining from myopathy and sepsis resulting in muscular weakness and strength deficits. Strength Deficits: Left Upper Extremity, Left Lower Extremity - FIM Ambulation Distance: 175 Toileting Adaptive Equipment: Raised Toilet Seat, Toilet Rails, Grab Bars Number of Continent Voids: 1 Number of Incontinent Voids: 0 - Current Functional Status Failed Alternative Therapy: Arrived from Acute Care Patient Requires: The patient requires oversight by rehabilitation physician to manage their rehabilitation treatment plan and multidisciplinary approach to care that can only be provided in an IRF and requires a multidisciplinary approach to care, provided by professional PTs, OTs, STs, dieticians, RTs, rehabilitation nurses and is not available in lesser levels of care. Physical Therapy Minutes: 90 Occupational Therapy Minutes: 90 Therapy: The patient is to receive therapy at least 5 days a week. - Anticipated LOS/Outcomes Anticipated Functional Outcome: Return to previous function and strength with inpatient physical and occupational therapy. Anticipated DC Destination: Home Health Service, Group Home/Facility Home Safety Plan: The patient will be provided with the development of a Home Safety Plan for return to a home or home-like environment and and to ensure safety post discharge. - Plan to Avoid Complications Barriers to Attaining Goals: Weakness, Balance, Endurance Plan to Avoid Complications: The patient cannot receive this care in a lesser intensive setting such as Prison or Outpatient Therapy due to the patient requiring medical oversight of sepsis and pneumonia.
--- NOTE | 2016-11-25 17:47 | IRU Progress Note ---
- Subjective/Serverity of Illness Pt in dining room. Has been cooperating with PT adn OT. She is tired. Exam Vital Signs: Temperature 98.1 F Pulse Rate 83 Respiratory Rate 14 Blood Pressure 158/75 H Pulse Oximetry 92 Oxygen Delivery Method Room Air Telemetry Rhythm: Sinus Rhythm Height: 1.65 m Weight: 66.5 kg Body Mass Index: 24.3 - Constitutional Present: cooperative - Routine HEENT Exam Head: Present: normocephalic - Routine Chest/Breast/Axilla Exam Chest wall: Present: tenderness - Routine Respiratory Exam Present: crackles (mild bilat), distant breath sounds - Routine Cardiovascular Exam Present: RRR, no murmur - Routine Abdominal Exam Present: soft, normoactive bowel sounds, non distended, non tender - Routine Extremities Exam Present: edema (trace). Absent: cyanosis, clubbing - Routine Skin Exam Present: dry, warm - Routine Neurological Exam Present: alert Sepsis Assessment - Evaluation Sepsis screening result: No Definite Risk IRU A/P (1) Myopathy Current visit: Yes Status: Acute PT and OT working with pt to increase stamina and strength. Cont with current plan of care. (2) Acute encephalopathy Current visit: No Status: Acute Medical following. (3) Sepsis due to pneumonia Current visit: No Status: Acute Medical cont to follow and will manage any acute changes. DVT Prophylaxis: SCD's - Course Hospital Course: C 11/23/16 17:48 - Interventions to Obtain Goals PT Treatment Plan: Balance/Proprioception, Functional Activities, Gait Training , Patient/Family Education, Therapeutic Exercise OT Treatment Plan: ADL (Basic Care), Balance Training, IADL, Pt./Family Education, Ther. Exercise for ADL
--- NOTE | 2016-11-25 17:53 | IRU Progress Note ---
- Subjective/Serverity of Illness Pt working with staff and feels like she is becoming stronger. Transfers more easily accomplished now. Exam Vital Signs: Temperature 98.1 F 11/25/16 16:00 Pulse Rate 83 11/25/16 16:00 Respiratory Rate 14 11/25/16 16:00 Blood Pressure 158/75 H 11/25/16 16:00 Pulse Oximetry 92 11/25/16 16:00 Oxygen Delivery Method Room Air Telemetry Rhythm: Sinus Rhythm Height: 1.65 m Weight: 66.5 kg Body Mass Index: 24.3 - Constitutional Present: no acute distress - Routine HEENT Exam Head: Present: normocephalic - Routine Respiratory Exam Present: CTA bilaterally. Absent: wheezes, crackles - Routine Cardiovascular Exam Present: RRR, murmur - Routine Abdominal Exam Present: soft, normoactive bowel sounds, non distended, non tender - Routine Extremities Exam Absent: cyanosis, clubbing - Routine Skin Exam Present: dry, warm - Routine Neurological Exam Present: alert, oriented X3, normal reflexes, moving all extremities - Routine Psychiatric Exam Present: normal affect Sepsis Assessment - Evaluation Sepsis screening result: No Definite Risk IRU A/P (1) Myopathy Current visit: Yes Status: Acute Pt strength and stamina improving. See FIMs (2) Acute encephalopathy Current visit: No Status: Acute Medical following. Pt stable. (3) Sepsis due to pneumonia Current visit: No Status: Acute Medical following. DVT Prophylaxis: SCD's - Course Hospital Course: C 11/23/16 17:48 - Interventions to Obtain Goals PT Treatment Plan: Balance/Proprioception, Functional Activities, Gait Training , Patient/Family Education, Therapeutic Exercise OT Treatment Plan: ADL (Basic Care), Balance Training, IADL, Pt./Family Education, Ther. Exercise for ADL
[2016-11-26] MEDS: QUETIAPINE 100 MG TABLET PO SCH ×3 (03:45→22:34)
[2016-11-26] MEDS: ALPRAZolam 0.5 MG TABLET PO SCH ×3 (03:45→22:34)
[2016-11-26] MEDS: DONEPEZIL 10 MG TABLET PO SCH ×3 (03:45→22:34)
[2016-11-26] MEDS: FERROUS SULFATE 324 MG TABLET PO SCH (08:25)
[2016-11-26] MEDS: ASPIRIN *EC* 81 MG TABLET PO SCH (08:26)
[2016-11-26] MEDS: MEMANTINE 10 MG TABLET PO SCH ×2 (08:26→20:16)
[2016-11-26] MEDS: GABAPENTIN 100 MG CAPSULE PO SCH ×3 (08:26→20:16)
[2016-11-26] MEDS: FOLIC ACID 1 MG TABLET PO SCH ×2 (08:26→20:16)
[2016-11-26] MEDS: CALCIUM 600 + VIT D 400 TABLET PO SCH (08:26)
[2016-11-26] MEDS: MULTI-VITAMIN PLAIN TABLET PO SCH (08:27)
[2016-11-26] MEDS: SENNA + DOCUSATE TABLET PO SCH ×2 (08:27→20:17)
[2016-11-26] MEDS: ASCORBIC ACID 500 MG TABLET PO SCH (08:28)
[2016-11-26] MEDS: BuPROPion XL 150mg (24HR) TABLET PO SCH ×3 (08:28→20:16)
[2016-11-26] MEDS: SERTRALINE 100 MG TABLET PO SCH ×2 (08:28→20:16)
[2016-11-26] MEDS: CYANOCOBALAMIN (B-12) 500mcg TABLET PO SCH (08:30)
--- NOTE | 2016-11-26 15:19 | Progress Note ---
Subjective: Rachel is seen today in follow-up. She is resting in her room talking on the phone with family. She is alert and pleasant. Denies pain or shortness of breath. Denies GI complaints, appetite is good. SBP 141/74. She is excited with the plan to discharge tomorrow. Objective Vital signs: Temperature 97.3 F 11/26/16 08:00 Pulse Rate 99 11/26/16 08:00 Respiratory Rate 20 11/26/16 08:00 Blood Pressure 141/74 H 11/26/16 08:00 Pulse Oximetry 94 11/26/16 08:00 Oxygen Delivery Method Room Air Body Mass Index: 24.3 - Constitutional Present: no acute distress - Routine HEENT Exam Head: Present: normocephalic, atraumatic Eye: Present: EOMI, PERRL ENT: Present: mucous membranes moist - Routine Respiratory Exam Present: CTA bilaterally - Routine Cardiovascular Exam Present: RRR, S1, S2 - Routine Abdominal Exam Present: soft, normoactive bowel sounds - Routine Extremities Exam Present: full ROM - Routine Back/Spine/Pelvis Exam Back/Spine: Present: full ROM - Routine Skin Exam Present: intact, dry, warm - Routine Neurological Exam Present: alert, CN II-XII intact, moving all extremities Results - Labs CBC & Chem 7: 11/22/16 04:19 11/22/16 04:19 Assessment and Plan (1) Sepsis due to pneumonia Current visit: No Status: Acute (2) Acute encephalopathy Current visit: No Status: Acute (3) Myopathy Current visit: Yes Status: Acute Assessment and Plan: 11/26/16- Overall very medically stable. Her blood pressure has been well controlled. Continue to work with PT and OT for ongoing strengthening Planning for discharge to memory care unit facility tomorrow. Case discussed with Dr. Cuevas Sepsis Assessment - Evaluation Sepsis screening result: No Definite Risk Hospital Course Summary Disclaimer: The visit summary below is not to be considered part of the above Progress Note. Hospital Course: 11/22/16 08:42 Rachel resides at [facility]. Agree with admission to IRU for ongoing strengthening given recent significant illness of sepsis, Pneumonia and encephalopathy. Patient did complete a five-day course of IV antibiotics. She does continue to use Polytrim eyedrops for treatment of conjunctivitis. Continue with senna plus, MiraLAX and milk of magnesia for ongoing bowel motivation Encourage work with PT/OT for ongoing strengthening All morning labs remain stable. Appreciate consultation for medical management of existing comorbidities. At time of discharge medical care will return to primary care provider, Dr. Gonzalez 11/24 Overall she appears to be medically stable. Has completed 7 day course of Polytrim eyedrops for treatment of conjunctivitis. Will discontinue today BP has been intermittently elevated. Continue to monitor. Continue with senna plus, MiraLAX and milk of magnesia for ongoing bowel motivation Encourage work with PT/OT for ongoing strengthening 11/26/16 15:19 11/26/16- Overall very medically stable. Her blood pressure has been well controlled. Continue to work with PT and OT for ongoing strengthening Planning for discharge to memory care unit facility tomorrow. Case discussed with Dr. Cuevas
--- NOTE | 2016-11-26 15:24 | Discharge Summary ---
Discharge Plan - Med Rec/Dispo Referrals/Follow Up: Eboni Gonzalez MD [Family Provider] - (Dr. Jose Gonzalez will see patient on rounds at the facility for Hosp. follow-up. .) Prescriptions: New Albuterol Neb (0.5%) [Proventil Neb (0.5%)] 2.5 mg IH Q2H PRN neb PRN Reason: Wheezing Aspirin *EC* [Ecotrin] 81 mg PO DAILY tablet Acetaminophen [Tylenol] 650 mg PO Q5H PRN tablet PRN Reason: Discomfort Bisacodyl Supp [Dulcolax] 10 mg RECTALLY DAILY PRN supp PRN Reason: Constipation Continue ALPRAZolam [Alprazolam] 0.5 mg PO HS #0 BuPROPion XL [Wellbutrin Xl] 150 mg PO TID #0 Cyanocobalamin (Vitamin B-12) [B-12] 1,000 mcg PO DAILY #0 Sennosides/Docusate Sodium [Sm Senna-S Tablet] 1 tab PO BID #0 Ferrous Sulfate 325 mg PO WB #0 Sertraline [Zoloft] 100 mg PO DAILY Folic Acid [Folate] 1 mg PO BID Beta-Carotene(A)-Vits C,E/Mins [Vision Vitamins] 1 tab PO DAILY Quetiapine [Seroquel] 100 mg PO HS Calcium Carbonate/Vitamin D3 [Calcium 600-Vit D3 400 Tablet] 1 tab PO DAILY ALPRAZolam [Xanax] 0.25 mg PO DAILY PRN PRN Reason: Anxiety Acetaminophen [Tylenol] 650 mg PO Q5H PRN PRN Reason: Discomfort Gabapentin 100 mg PO TID #0 Ascorbic Acid 500 mg PO DAILY #0 Aspirin/Acetaminophen/Caffeine [Excedrin Extra Strength Caplet] 1 tab PO Q4H PRN PRN Reason: Pain Lisinopril [Prinivil] 40 mg PO HS Memantine HCl/Donepezil HCl [Namzaric 28 mg-10 mg Capsule] 1 cap PO DAILY Discontinued Albuterol Neb (0.5%) [Proventil Neb (0.5%)] 2.5 mg IH Q2H PRN ampul PRN Reason: Wheezing guaiFENesin [Guaifenesin] 400 mg PO Q4H PRN #0 PRN Reason: CONGESTION Amoxicillin [Amoxicillin] 2,000 mg PO PRN PRN PRN Reason: Prn Orders No Action Aspirin [Aspirin EC] 81 mg PO DAILY - Disposition 01 Discharged Home, Self-Care
[2016-11-26 16:22] VITALS: O2SAT 96
--- NOTE | 2016-11-27 07:23 | Discharge Summary ---
Discharge Information Date of admission: 11/21/16 17:47 Anticipated date of discharge: 11/27/16 Attending Physician: Tyrone Cuevas MD Primary care physician: Eboni Gonzalez MD Consults: 11/21/16 19:03 Physician Consult [CONS] Routine Consulting Provider: Kyle Cruz Reason For Exam: medical management of recent sepsis and chronic co Ordering Provider has Notified [employer]: Yes 11/26/16 09:07 Physician Consult [CONS] Routine Consulting Provider: [facility] Reason For Exam: CONTINUITY OF CARE Ordering Provider has Notified [employer]: Yes Comment: CONT CARE - Discharge Diagnosis (1) Myopathy Problem Details: Improvement with PT and OT involvement during admission to IRU , See FIM's Status: Acute (2) Acute encephalopathy Problem Details: Pt is returning to memory unit for safety. Status: Acute (3) Sepsis due to pneumonia Problem Details: Improved with medical management by hospitalist Status: Acute - Laboratory Labs: 11/22/16 04:19 11/22/16 04:19 History of Present Illness HPI: 11/27/16 07:25 81 yo female with recent admission to hospital with pneumonia and sepsis. She has had confusion and encephalopathy noted during admission. This was not present prior to this infection. She has been bed bound since admission on . Pneumonia is improving and pt is now unable to manage ADL's due to weakness and not yet fully resolved encephalopathy and confusion. She will be admitted to IRU for strengthening and safety training with medical oversight. Hospital Course This is a general summary of the patient's hospital course. For more details refer to the complete medical record. 11/22/16 08:42 Rachel resides at [facility]. Agree with admission to IRU for ongoing strengthening given recent significant illness of sepsis, Pneumonia and encephalopathy. Patient did complete a five-day course of IV antibiotics. She does continue to use Polytrim eyedrops for treatment of conjunctivitis. Continue with senna plus, MiraLAX and milk of magnesia for ongoing bowel motivation Encourage work with PT/OT for ongoing strengthening All morning labs remain stable. At time of discharge medical care will return to primary care provider, Dr. Gonzalez 11/24 Overall she appears to be medically stable. Has completed 7 day course of Polytrim eyedrops for treatment of conjunctivitis. Will discontinue today BP has been intermittently elevated. Continue to monitor. Continue with senna plus, MiraLAX and milk of magnesia for ongoing bowel motivation Encourage work with PT/OT for ongoing strengthening 11/26/16 15:19 11/26/16- Overall very medically stable. Her blood pressure has been well controlled. Continue to work with PT and OT for ongoing strengthening Planning for discharge to memory care unit facility tomorrow. Case discussed with Dr. Cuevas L[facility] Hospital course: 11/22/16 08:42 Rachel resides at [facility]. Agree with admission to IRU for ongoing strengthening given recent significant illness of sepsis, Pneumonia and encephalopathy. Patient did complete a five-day course of IV antibiotics. She does continue to use Polytrim eyedrops for treatment of conjunctivitis. Continue with senna plus, MiraLAX and milk of magnesia for ongoing bowel motivation Encourage work with PT/OT for ongoing strengthening All morning labs remain stable. Appreciate consultation for medical management of existing comorbidities. At time of discharge medical care will return to primary care provider, Dr. Gonzalez 11/24 Overall she appears to be medically stable. Has completed 7 day course of Polytrim eyedrops for treatment of conjunctivitis. Will discontinue today BP has been intermittently elevated. Continue to monitor. Continue with senna plus, MiraLAX and milk of magnesia for ongoing bowel motivation Encourage work with PT/OT for ongoing strengthening 11/26/16 15:19 11/26/16- Overall very medically stable. Her blood pressure has been well controlled. Continue to work with PT and OT for ongoing strengthening Planning for discharge to memory care unit facility tomorrow. Case discussed with Dr. Cuevas Time spent with patient: 25 - 35 minutes Discharge Plan - Med Rec/Dispo Referrals/Follow Up: Eboni Gonzalez MD [Family Provider] - (Dr. Jose Gonzalez will see patient on rounds at the facility for Hosp. follow-up. .) Prescriptions: New Albuterol Neb (0.5%) [Proventil Neb (0.5%)] 2.5 mg IH Q2H PRN neb PRN Reason: Wheezing Aspirin *EC* [Ecotrin] 81 mg PO DAILY tablet Acetaminophen [Tylenol] 650 mg PO Q5H PRN tablet PRN Reason: Discomfort Bisacodyl Supp [Dulcolax] 10 mg RECTALLY DAILY PRN supp PRN Reason: Constipation Continue ALPRAZolam [Alprazolam] 0.5 mg PO HS #0 BuPROPion XL [Wellbutrin Xl] 150 mg PO TID #0 Cyanocobalamin (Vitamin B-12) [B-12] 1,000 mcg PO DAILY #0 Sennosides/Docusate Sodium [Sm Senna-S Tablet] 1 tab PO BID #0 Ferrous Sulfate 325 mg PO WB #0 Sertraline [Zoloft] 100 mg PO DAILY Folic Acid [Folate] 1 mg PO BID Beta-Carotene(A)-Vits C,E/Mins [Vision Vitamins] 1 tab PO DAILY Quetiapine [Seroquel] 100 mg PO HS Calcium Carbonate/Vitamin D3 [Calcium 600-Vit D3 400 Tablet] 1 tab PO DAILY ALPRAZolam [Xanax] 0.25 mg PO DAILY PRN PRN Reason: Anxiety Acetaminophen [Tylenol] 650 mg PO Q5H PRN PRN Reason: Discomfort Gabapentin 100 mg PO TID #0 Ascorbic Acid 500 mg PO DAILY #0 Aspirin/Acetaminophen/Caffeine [Excedrin Extra Strength Caplet] 1 tab PO Q4H PRN PRN Reason: Pain Lisinopril [Prinivil] 40 mg PO HS Memantine HCl/Donepezil HCl [Namzaric 28 mg-10 mg Capsule] 1 cap PO DAILY Discontinued Albuterol Neb (0.5%) [Proventil Neb (0.5%)] 2.5 mg IH Q2H PRN ampul PRN Reason: Wheezing guaiFENesin [Guaifenesin] 400 mg PO Q4H PRN #0 PRN Reason: CONGESTION Amoxicillin [Amoxicillin] 2,000 mg PO PRN PRN PRN Reason: Prn Orders No Action Aspirin [Aspirin EC] 81 mg PO DAILY Discharge Instructions/Outpatient Orders: Final Provider Discharge Instructions Location: Determined By Patient - Disposition 01 Discharged Home, Self-Care
[2016-11-27] MEDS: BuPROPion XL 150mg (24HR) TABLET PO SCH (08:45)
[2016-11-27] MEDS: CALCIUM 600 + VIT D 400 TABLET PO SCH (08:45)
[2016-11-27] MEDS: MULTI-VITAMIN PLAIN TABLET PO SCH (08:45)
[2016-11-27] MEDS: SENNA + DOCUSATE TABLET PO SCH (08:46)
[2016-11-27] MEDS: ASCORBIC ACID 500 MG TABLET PO SCH (08:46)
[2016-11-27] MEDS: CYANOCOBALAMIN (B-12) 500mcg TABLET PO SCH (08:46)
[2016-11-27] MEDS: GABAPENTIN 100 MG CAPSULE PO SCH (08:46)
[2016-11-27] MEDS: MEMANTINE 10 MG TABLET PO SCH (08:46)
[2016-11-27] MEDS: ASPIRIN *EC* 81 MG TABLET PO SCH (08:46)
[2016-11-27] MEDS: FOLIC ACID 1 MG TABLET PO SCH (08:46)
[2016-11-27] MEDS: FERROUS SULFATE 324 MG TABLET PO SCH (08:46)
[2016-11-27] MEDS: SERTRALINE 100 MG TABLET PO SCH (08:46)
[2016-11-27 09:19] VITALS: BP 145/85; PULSE 82; RESP 16; TEMP 98.1
--- NOTE | 2016-11-28 17:21 | Right on Track Program ---
Right on Track Program Date of Discharge: 11/27/16 Home Medications: Home Medications Medication Instructions Recorded Confirmed ALPRAZolam [Alprazolam] 0.5 mg PO HS #0 06/04/10 11/21/16 BuPROPion XL [Wellbutrin Xl] 150 mg PO TID #0 11/22/14 11/21/16 Gabapentin 100 mg PO TID #0 10/24/15 11/21/16 Ascorbic Acid 500 mg PO DAILY #0 09/26/16 11/21/16 Cyanocobalamin (Vitamin B-12) 1,000 mcg PO DAILY #0 09/26/16 11/21/16 [B-12] Ferrous Sulfate 325 mg PO WB #0 09/26/16 11/21/16 Sennosides/Docusate Sodium [Sm 1 tab PO BID #0 09/26/16 11/21/16 Senna-S Tablet] ALPRAZolam [Xanax] 0.25 mg PO DAILY PRN 11/17/16 11/21/16 Aspirin [Aspirin EC] 81 mg PO DAILY 11/17/16 11/21/16 Aspirin/Acetaminophen/Caffeine 1 tab PO Q4H PRN 11/17/16 11/21/16 [Excedrin Extra Strength Caplet] Beta-Carotene(A)-Vits C,E/Mins 1 tab PO DAILY 11/17/16 11/21/16 [Vision Vitamins] Calcium Carbonate/Vitamin D3 1 tab PO DAILY 11/17/16 11/21/16 [Calcium 600-Vit D3 400 Tablet] Folic Acid [Folate] 1 mg PO BID 11/17/16 11/21/16 Lisinopril [Prinivil] 40 mg PO HS 11/17/16 11/21/16 Memantine HCl/Donepezil HCl 1 cap PO DAILY 11/17/16 11/21/16 [Namzaric 28 mg-10 mg Capsule] Quetiapine [Seroquel] 100 mg PO HS 11/17/16 11/21/16 Sertraline [Zoloft] 100 mg PO DAILY 11/17/16 11/21/16 Previous Rx's Medication Instructions Recorded Acetaminophen [Tylenol] 650 mg PO Q5H PRN 11/21/16 Acetaminophen [Tylenol] 650 mg PO Q5H PRN tablet 11/26/16 Albuterol Neb (0.5%) [Proventil 2.5 mg IH Q2H PRN neb 11/26/16 Neb (0.5%)] Aspirin *EC* [Ecotrin] 81 mg PO DAILY tablet 11/26/16 Bisacodyl Supp [Dulcolax] 10 mg RECTALLY DAILY PRN supp 11/26/16 - Right on Track Program Phone Call #1 Date: 11/28/16 Right on Track Program: 24 Hour Follow-Up Care Plan Received: Yes Follow Up: Follow Up Appointment Scheduled (Dr. Gonzalez or an PALEOBOTANIST comes and makes visits at [facility]) Education: Education Provided To Caregiver Referral: Primary Care Physician Comments: I called 3 separate times to [facility] on 11/28/16. The 3rd call I was able to talk with Roseline, one of the staff members who helped to care for Rachel. She reports that Rachel had a fall this morning and a low-grade fever of 100. She had also c/o headache and received Excedrin, which relieved her symptoms. It is usual protocol to contact PCP after a fall. Rachel was currently eating supper and doing well. We reviewed her hospital diagnosis pneumonia, and to continue to be on high alert for fevers, dyspnea/respiratory symptoms, cough, etc. Roseline was unable to comment on whether or not they had the hospital discharge summary or care plan, but wasn't aware of any questions. Recommendations For Follow-up: 1. monitor closely for signs of sepsis, especially with recent diagnoses/ hospitalization 2. f/u with Dr. Gonzalez as planned 3. Will continue to follow through [employer]. Phone call #2 Date: 12/05/16 Comments: [facility] and to schedule a visit. I was unable to reach anyone, but left a message with my contact information at the hospital. Will continue to follow through phone checkups.
== END 2016-11-27 10:20 | disposition home or self-care (01) ==
PROVIDERS: ADMIT Family Medicine; ATTEND Family Medicine